=== PATIENT | female | born 1955 | race Caucasian/White ===

== ENCOUNTER 2018-06-18 13:29 | Inpatient (IN) | payer OTHER ==
[2018-06-18] MEDS ORDERED: PANTOPRAZOLE 40 MG/10 ML VIAL IVP STA (14:06)
[2018-06-18] MEDS ORDERED: SODIUM CHLORIDE 0.9% 500 ML IV STA (14:06)
--- NOTE | 2018-06-18 14:15 | ED ---
General Adult HPI - General Chief complaint: GI Bleed Stated complaint: Abd pain Time Seen by Provider: 06/18/18 13:40 Source: patient, RN notes reviewed Mode of arrival: ambulatory Limitations: no limitations - History of Present Illness Initial comments: This is a 62-year-old female presents emergency department after having seen her doctor today. Patient had dark black stool per rectum however stools in the toilet water turned red and was guaiac positive in the office and a hemoglobin was 8.9 patient states she's been weak lately and a little lightheaded on occasion. Patient denies any chest pain or palpitations. Patient denies any recent fever chills or cough. Patient states she has been taking 800 mg of Motrin 2-3 times a day for quite a while for her arthritis. Patient denies any abdominal pain patient denies any vomiting or diarrhea. - Related Data Home Medications Medication Instructions Recorded Confirmed Cholecalciferol [Vitamin D3] 400 unit PO DAILY 06/18/18 06/18/18 Ibuprofen [Motrin] 800 mg PO TID PRN 06/18/18 06/18/18 Krill Oil 500 mg PO DAILY 06/18/18 06/18/18 Thyroid, Pork [[place] Thyroid] 30 mg PO DAILY 06/18/18 06/18/18 Thyroid,Pork [[place] Thyroid] 120 mg PO DAILY 06/18/18 06/18/18 Vitamin B Complex 1 cap PO DAILY 06/18/18 06/18/18 cloNIDine HCL [Catapres] 0.2 mg PO BID 06/18/18 06/18/18 Allergies Allergy/AdvReac Type Severity Reaction Status Date / Time amoxicillin [From Augmentin] AdvReac YEAST Verified 06/18/18 14:26 INFECTION clavulanic acid AdvReac YEAST Verified 06/18/18 14:26 [From Augmentin] INFECTION Sulfa (Sulfonamide AdvReac YEAST Verified 06/18/18 14:26 Antibiotics) INFECTION Review of Systems ROS Statement: Those systems with pertinent positive or pertinent negative responses have been documented in the HPI. ROS Other: All systems not noted in ROS Statement are negative. Past Medical History Past Medical History: Hypertension, Thyroid Disorder Additional Past Medical History / Comment(s): Arthritis History of Any Multi-Drug Resistant Organisms: None Reported Past Surgical History: Cholecystectomy, Hysterectomy, Tonsillectomy Additional Past Surgical History / Comment(s): Thyroid cancer, thyriod removal Past Psychological History: No Psychological Hx Reported Smoking Status: Never smoker Past Alcohol Use History: Occasional Past Drug Use History: None Reported General Exam - General Exam Comments Initial Comments: GENERAL: Patient is well-developed and well-nourished. Patient is nontoxic and well- hydrated and is in no acute distress. ENT: Neck is soft and supple. No significant lymphadenopathy is noted. Oropharynx is clear. Moist mucous membranes. Neck has full range of motion without eliciting any pain. EYES: The sclera were anicteric and conjunctiva were pink and moist. Extraocular movements were intact and pupils were equal round and reactive to light. Eyelids were unremarkable. PULMONARY: Unlabored respirations. Good breath sounds bilaterally. No audible rales rhonchi or wheezing was noted. CARDIOVASCULAR: There is a regular rate and rhythm without any murmurs gallops or rubs. Femoral pulses are equal bilaterally ABDOMEN: Soft and nontender with normal bowel sounds. No palpable organomegaly was noted. There is no palpable pulsatile mass. SKIN: Skin is clear with no lesions or rashes and otherwise unremarkable. NEUROLOGIC: Patient is alert and oriented x3. Cranial nerves II through XII are grossly intact. Motor and sensory are also intact. Normal speech, volume and content. Symmetrical smile. MUSCULOSKELETAL: Normal extremities with adequate strength and full range of motion. No lower extremity swelling or edema. No calf tenderness. LYMPHATICS: No significant lymphadenopathy is noted PSYCHIATRIC: Normal psychiatric evaluation. Normal interpersonal interactions appears functionally intact in deals appropriately with others. No signs of depression. No signs of anxiety. Limitations: no limitations Course Vital Signs 06/18/18 06/18/18 13:42 15:37 Temperature 97.8 F Pulse Rate 116 H 88 Respiratory 20 18 Rate Blood Pressure 130/76 167/71 O2 Sat by Pulse 100 100 Oximetry Medical Decision Making - Medical Decision Making Patient has dark black stools and guaiac positive in the office and had a hemoglobin that is dropped significantly will be admitting the patient I spoke with Dr. Spaulding he agreed to admit admitted the patient I consulted GI and I repeated CBCs every 6 hours - Lab Data Result diagrams: 06/18/18 14:05 06/18/18 14:05 Lab Results 06/18/18 06/18/18 06/18/18 Range/Units 14:05 14:05 14:05 WBC 7.8 (3.8-10.6) k/uL RBC 3.03 L (3.80-5.40) m/uL Hgb 9.6 L (11.4-16.0) gm/dL Hct 30.8 L (34.0-46.0) % MCV 101.7 H (80.0-100.0) fL MCH 31.8 (25.0-35.0) pg MCHC 31.3 (31.0-37.0) g/dL RDW 12.7 (11.5-15.5) % Plt Count 246 (150-450) k/uL Neutrophils % 68 % Lymphocytes % 23 % Monocytes % 5 % Eosinophils % 3 % Basophils % 0 % Neutrophils # 5.3 (1.3-7.7) k/uL Lymphocytes # 1.8 (1.0-4.8) k/uL Monocytes # 0.4 (0-1.0) k/uL Eosinophils # 0.2 (0-0.7) k/uL Basophils # 0.0 (0-0.2) k/uL PT (9.0-12.0) sec INR (<1.2) APTT (22.0-30.0) sec Sodium (137-145) mmol/L Potassium (3.5-5.1) mmol/L Chloride (98-107) mmol/L Carbon Dioxide (22-30) mmol/L Anion Gap mmol/L BUN (7-17) mg/dL Creatinine (0.52-1.04) mg/dL Est GFR (CKD-EPI)AfAm (>60 ml/min/1.73 sqM) Est GFR (CKD-EPI)NonAf (>60 ml/min/1.73 sqM) Glucose (74-99) mg/dL Calcium (8.4-10.2) mg/dL Magnesium (1.6-2.3) mg/dL Total Bilirubin (0.2-1.3) mg/dL AST (14-36) U/L ALT (9-52) U/L Alkaline Phosphatase (38-126) U/L Total Creatine Kinase 120 (30-135) U/L CK-MB (CK-2) 0.7 (0.0-2.4) ng/mL CK-MB (CK-2) Rel Index 0.6 Troponin I 0.016 (0.000-0.034) ng/mL Total Protein (6.3-8.2) g/dL Albumin (3.5-5.0) g/dL Blood Type O Positive Blood Type Recheck CABO Indicated Antibody Screen NEGATIVE Spec Expiration Date 06/21/2018 - 230406/18/18 06/18/18 Range/Units 14:05 14:05 WBC (3.8-10.6) k/uL RBC (3.80-5.40) m/uL Hgb (11.4-16.0) gm/dL Hct (34.0-46.0) % MCV (80.0-100.0) fL MCH (25.0-35.0) pg MCHC (31.0-37.0) g/dL RDW (11.5-15.5) % Plt Count (150-450) k/uL Neutrophils % % Lymphocytes % % Monocytes % % Eosinophils % % Basophils % % Neutrophils # (1.3-7.7) k/uL Lymphocytes # (1.0-4.8) k/uL Monocytes # (0-1.0) k/uL Eosinophils # (0-0.7) k/uL Basophils # (0-0.2) k/uL PT 9.9 (9.0-12.0) sec INR 1.0 (<1.2) APTT 21.4 L (22.0-30.0) sec Sodium 142 (137-145) mmol/L Potassium 4.4 (3.5-5.1) mmol/L Chloride 113 H (98-107) mmol/L Carbon Dioxide 21 L (22-30) mmol/L Anion Gap 8 mmol/L BUN 44 H (7-17) mg/dL Creatinine 0.73 (0.52-1.04) mg/dL Est GFR (CKD-EPI)AfAm >90 (>60 ml/min/1.73 sqM) Est GFR (CKD-EPI)NonAf >90 (>60 ml/min/1.73 sqM) Glucose 102 H (74-99) mg/dL Calcium 10.0 (8.4-10.2) mg/dL Magnesium 2.2 (1.6-2.3) mg/dL Total Bilirubin 0.3 (0.2-1.3) mg/dL AST 22 (14-36) U/L ALT 30 (9-52) U/L Alkaline Phosphatase 55 (38-126) U/L Total Creatine Kinase (30-135) U/L CK-MB (CK-2) (0.0-2.4) ng/mL CK-MB (CK-2) Rel Index Troponin I (0.000-0.034) ng/mL Total Protein 6.2 L (6.3-8.2) g/dL Albumin 3.6 (3.5-5.0) g/dL Blood Type Blood Type Recheck Antibody Screen Spec Expiration Date Disposition Clinical Impression: Anemia, GI bleed Disposition: ADMITTED IP TO THIS HOSP Referrals: Baltazar Benton MD [Primary Care Provider] - 1-2 days Time of Disposition: 15:10
[2018-06-18 14:31] LABS: Basophils % (A) 0 %; Eosinophils # (A) 0.2 k/uL (0-0.7); Eosinophils % (A) 3 %; HCT 30.8 % (34.0-46.0); HGB 9.6 gm/dL (11.4-16.0); Lymphocytes # (A) 1.8 k/uL (1.0-4.8); Lymphocytes % (A) 23 %; MCH 31.8 pg (25.0-35.0); MCHC 31.3 g/dL (31.0-37.0); MCV 101.7 fL (80.0-100.0); Mean Platelet Volume 8.7; Monocytes # (A) 0.4 k/uL (0-1.0); Monocytes % (A) 5 %; Neutrophils # (A) 5.3 k/uL (1.3-7.7); Neutrophils % (A) 68 %; Platelet Count 246 k/uL (150-450); RBC 3.03 m/uL (3.80-5.40); RDW 12.7 % (11.5-15.5); WBC 7.8 k/uL (3.8-10.6)
[2018-06-18 14:34] LABS: ALT 30 U/L (9-52); AST 22 U/L (14-36); Albumin 3.6 g/dL (3.5-5.0); Alkaline Phosphatase 55 U/L (38-126); Anion Gap 8 mmol/L; Blood Urea Nitrogen 44 mg/dL (7-17); Carbon Dioxide 21 mmol/L (22-30); Chloride 113 mmol/L (98-107); Glucose 102 mg/dL (74-99); Magnesium 2.2 mg/dL (1.6-2.3); Potassium 4.4 mmol/L (3.5-5.1); Sodium 142 mmol/L (137-145); Total Bilirubin 0.3 mg/dL (0.2-1.3); Total Protein 6.2 g/dL (6.3-8.2)
[2018-06-18 14:41] LABS: Prothrombin Time 9.9 sec (9.0-12.0)
[2018-06-18 14:54] LABS: Partial Thromboplastin Time 21.4 sec (22.0-30.0)
[2018-06-18 14:59] LABS: Creatine Kinase MB 0.7 ng/mL (0.0-2.4); Troponin I 0.016 ng/mL (0.000-0.034)
[2018-06-18] MEDS ORDERED: SODIUM CHLORIDE 0.9% 1,000 ML IV ONE (15:10)
[2018-06-18] MEDS ORDERED: MAG HYDROX/AL HYDROX/SIMETH 30 ML CUP PO PRN (18:29)
[2018-06-18] MEDS ORDERED: ONDANSETRON 4 MG/2 ML VIAL IVP PRN (20:36)
[2018-06-18] MEDS ORDERED: LACTATED RINGERS 1,000 ML IV SCH (20:45)
[2018-06-18 21:39] LABS: Glucose,Whole Blood 102 mg/dL (75-99)
[2018-06-18 22:10] VITALS: BMI 39.6
[2018-06-18] MEDS: cloNIDine HCL 0.2 MG TAB PO SCH (22:13)
[2018-06-18] MEDS: PANTOPRAZOLE 40 MG/10 ML VIAL IVP SCH (22:13)
[2018-06-18 22:51] LABS: HCT 27.5 % (34.0-46.0); HGB 8.9 gm/dL (11.4-16.0); MCH 33.2 pg (25.0-35.0); MCHC 32.4 g/dL (31.0-37.0); MCV 102.4 fL (80.0-100.0); Macrocytosis Slight; Mean Platelet Volume 6.9; Platelet Count 222 k/uL (150-450); RBC 2.69 m/uL (3.80-5.40); RDW 12.9 % (11.5-15.5); WBC 8.4 k/uL (3.8-10.6)
--- NOTE | 2018-06-18 22:59 | HP ---
HISTORY AND PHYSICAL DATE OF SERVICE AND DATE OF ADMISSION: 06/18/2018 PRESENT COMPLAINT: Black stool. HISTORY OF PRESENTING COMPLAINT: This is a very pleasant 62-year-old patient of Dr. Baltazar Benton. Chronic stable medical conditions include hypertension, hypothyroid, arthritis of the joints. The patient has been taking Motrin for quite some time, normally takes over 800 mg once or twice a day. She takes for pain in the right knee. The patient off and on gets abdominal discomfort, but last night the patient's pain became more burning in nature and the patient had a black stool yesterday evening and this morning. Feeling weak, tired, run down. Pain is localized to the middle of the abdomen. No penetration. Some nausea is present. No vomiting. No fever or chills. Admitted for the same. NSAIDs were held, was given 1 dose of IV PPI in the ER. The patient has not had an EGD before. REVIEW OF SYSTEMS: CONSTITUTIONAL: Weak and tired. HEENT: None. RESPIRATORY: None. CARDIOVASCULAR: None. GASTROINTESTINAL: As above. GENITOURINARY: None. MUSCULOSKELETAL: Arthritic pain in joints, especially the knees. DERMATOLOGICAL: None. HEMATOLOGIC: None. LYMPHATIC: None. PSYCHIATRY: None. NEUROLOGICAL: None. PAST MEDICAL HISTORY: Hypertension, hypothyroid, osteoarthritis. PAST SURGICAL HISTORY: Cholecystectomy, hysterectomy, tonsillectomy, thyroid cancer with thyroidectomy. 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 . No smoking. Alcohol occasionally. FAMILY HISTORY: Reviewed, noncontributory to presentation. HOME MEDICATIONS: 1. Catapres 0.2 mg p.o. b.i.d. 2. Vitamin B complex 1 capsule p.o. daily. 3. [place] thyroid 150 mg p.o. daily. 4. Krill oil 500 mg p.o. daily. 5. Motrin 800 mg p.o. t.i.d. p.r.n. 6. Vitamin D3 400 units p.o. daily. ALLERGIES: To AUGMENTIN, SULFA. EXAMINATION: VITAL SIGNS: On presentation, temperature 97.8, pulse 116, respirations 20, blood pressure 130/76, pulse ox 100% on room air. GENERAL APPEARANCE: Well-built, BMI 39.3. Lying in bed, tired-appearing. EYES: Pupils equal. Conjunctivae normal. HEENT: External appearance of nose and ears normal. Oral cavity normal. NECK: JVD not raised. Mass not palpable. RESPIRATORY: Effort normal. Lungs are clear. CARDIOVASCULAR: First and second sounds normal. No edema. ABDOMEN: Epigastric tenderness. No guarding or rigidity. Liver and spleen not palpable. LYMPHATIC: No lymph nodes palpable in neck or axillae. PSYCHIATRY: Alert and oriented x3. Mood and affect normal. NEUROLOGICAL: Pupils equal. Cranial nerve grossly intact. Power and sensation grossly intact. MUSCULOSKELETAL: Evidence of early osteoarthritis, especially in the hands. INVESTIGATIONS: White count 7.8, hemoglobin 9.6. Potassium 4.4, BUN 44, creatinine 0.73. ASSESSMENT: 1. Acute upper gastrointestinal bleed, likely gastric in nature from the patient has been taking nonsteroidal anti-inflammatory drugs for quite a while, presented with acute gastrointestinal bleed. 2. Next acute blood loss anemia from acute gastrointestinal bleed. 3. Obesity, BMI 39.3. 4. Essential hypertension. 5. Hypothyroidism. 6. Primary osteoarthritis multiple joints. PLAN: The patient's NSAIDs have been held. The patient is started on IV PPIs. GI was consulted with a view to EGD. The patient will be made n.p.o. except for medications and ice chips. Care was discussed with the patient. Questions were answered. MMODL / IJN: [id number] /
[2018-06-19] MEDS ORDERED: NALOXONE 0.4 MG/ML 1 ML VIAL IV PRN (01:32)
[2018-06-19 05:08] LABS: Anion Gap 4 mmol/L; Blood Urea Nitrogen 25 mg/dL (7-17); Calcium 8.9 mg/dL (8.4-10.2); Carbon Dioxide 21 mmol/L (22-30); Chloride 117 mmol/L (98-107); Glucose 99 mg/dL (74-99); Magnesium 2.2 mg/dL (1.6-2.3); Phosphorus 3.6 mg/dL (2.5-4.5); Sodium 142 mmol/L (137-145)
[2018-06-19 05:23] LABS: Potassium 4.8 mmol/L (3.5-5.1)
[2018-06-19 06:14] LABS: Basophils % (A) 0 %; Eosinophils # (A) 0.1 k/uL (0-0.7); Eosinophils % (A) 2 %; HCT 24.5 % (34.0-46.0); HGB 7.8 gm/dL (11.4-16.0); Lymphocytes # (A) 2.1 k/uL (1.0-4.8); Lymphocytes % (A) 34 %; MCHC 31.9 g/dL (31.0-37.0); MCV 100.4 fL (80.0-100.0); Mean Platelet Volume 7.7; Monocytes # (A) 0.4 k/uL (0-1.0); Monocytes % (A) 6 %; Neutrophils # (A) 3.3 k/uL (1.3-7.7); Neutrophils % (A) 55 %; Platelet Count 211 k/uL (150-450); RBC 2.44 m/uL (3.80-5.40); RDW 12.7 % (11.5-15.5)
[2018-06-19] MEDS: SODIUM CHLORIDE 0.9% 1,000 ML IV SCH ×2 (08:35→12:30)
[2018-06-19] MEDS: THYROID, PORK 30 MG TAB PO SCH ×2 (08:57)
[2018-06-19] MEDS: PANTOPRAZOLE 40 MG/10 ML VIAL IVP SCH ×2 (08:57→21:24)
[2018-06-19] MEDS: cloNIDine HCL 0.2 MG TAB PO SCH ×2 (09:30→21:25)
--- NOTE | 2018-06-19 10:28 | P.CNPUL ---
History of Present Illness Consult date: 06/19/18 Chief complaint: GI bleeding History of present illness: 62-year-old female patient, came into the hospital yesterday after having melanotic stools at home. The patient started having melanotic stools approximately 5 AM yesterday morning and she had another bout 8 AM and then noontime. Following that she went to see her primary care physician and she had a positive Hemoccult and she came into the emergency department. Initial hemoglobin was at 9.6. The patient was started on IV Protonix. She was given IV fluids in the order of 100 mL an hour. She hasn't bled since her arrival to the intensive care unit. She is calm and comfortable she is currently nothing by mouth. No abdominal pain. No nausea or vomiting. No weight loss. No bright red blood per rectum. She is never had Any EGDs. Never Had It Done Any Colonoscopies. No Other Complaints. No Alcoholism. No Liver Disease. Coags Are within Normal Limits. No previous bouts of GI bleed. Most recent hemoglobin this morning is at 7.8. The patient has not required any blood transfusion. The patient has been taking Motrin at home for osteoarthritis. She was prescribed 800 mg 3 times a day and she has been taken twice a day. She did have some vague GI discomfort/symptoms of dyspepsia along with intake of Motrin. No weight loss. No other Social Symptoms. Review of Systems Constitutional: Denies chills, Denies fever Eyes: bilateral blurred vision, bilateral bulging eye, bilateral decreased vision Ears: deny: decreased hearing, ear discharge, earache, tinnitus Ears, nose, mouth and throat: Denies headache, Denies sore throat Breasts: Reports as per HPI Cardiovascular: Denies chest pain, Denies shortness of breath Respiratory: Denies cough Gastrointestinal: Reports melena Genitourinary: Denies dysuria, Denies hematuria Menstruation: Reports as per HPI Musculoskeletal: bilateral: ankle pain, ankle stiffness, ankle swelling Integumentary: Denies pruritus, Denies rash Neurological: Reports as per HPI Psychiatric: Reports as per HPI Endocrine: Reports as per HPI Hematologic/Lymphatic: Reports as per HPI Allergic/Immunologic: Reports as per HPI Past Medical History Past Medical History: Hypertension, Thyroid Disorder Additional Past Medical History / Comment(s): Arthritis History of Any Multi-Drug Resistant Organisms: None Reported Past Surgical History: Cholecystectomy, Hysterectomy, Tonsillectomy Additional Past Surgical History / Comment(s): Thyroid cancer, thyriod removal Past Psychological History: No Psychological Hx Reported Smoking Status: Never smoker Past Alcohol Use History: Occasional Past Drug Use History: None Reported Medications and Allergies Home Medications Medication Instructions Recorded Confirmed Type Cholecalciferol [Vitamin D3] 400 unit PO DAILY 06/18/18 06/18/18 History Ibuprofen [Motrin] 800 mg PO TID PRN 06/18/18 06/18/18 History Krill Oil 500 mg PO DAILY 06/18/18 06/18/18 History Thyroid, Pork [[place] Thyroid] 30 mg PO DAILY 06/18/18 06/18/18 History Thyroid,Pork [[place] Thyroid] 120 mg PO DAILY 06/18/18 06/18/18 History Vitamin B Complex 1 cap PO DAILY 06/18/18 06/18/18 History cloNIDine HCL [Catapres] 0.2 mg PO BID 06/18/18 06/18/18 History Allergies Allergy/AdvReac Type Severity Reaction Status Date / Time amoxicillin [From Augmentin] AdvReac YEAST Verified 06/18/18 14:26 INFECTION clavulanic acid AdvReac YEAST Verified 06/18/18 14:26 [From Augmentin] INFECTION Sulfa (Sulfonamide AdvReac YEAST Verified 06/18/18 14:26 Antibiotics) INFECTION Physical Exam Vitals: Vital Signs Temp Pulse Pulse Resp BP BP Pulse Ox 06/19/18 10:00 79 19 119/62 99 06/19/18 09:00 77 21 131/65 100 06/19/18 08:00 97.9 F 77 17 114/63 98 06/19/18 07:00 74 16 92/68 95 06/19/18 06:00 80 6 L 102/52 97 06/19/18 05:00 83 18 114/50 98 06/19/18 04:00 98.7 F 76 69 18 99/48 98 06/19/18 03:00 71 16 107/54 98 06/19/18 02:00 66 15 96/57 97 06/19/18 01:00 73 29 H 98/57 98 06/19/18 00:00 75 71 16 94/51 06/18/18 23:00 83 19 154/74 06/18/18 22:00 85 21 160/71 97 06/18/18 21:39 93 17 06/18/18 20:58 97.7 F 87 18 185/87 100 06/18/18 20:29 98.6 F 90 16 175/80 100 06/18/18 19:02 98.8 F 85 18 153/75 98 06/18/18 17:31 88 18 134/98 98 06/18/18 16:17 98.1 F 86 22 160/71 99 06/18/18 15:37 88 18 167/71 100 06/18/18 13:42 97.8 F 116 H 20 130/76 100 Intake and Output 06/18/18 06/19/18 06/19/18 22:59 06:59 14:59 Intake Total 800 430 Output Total 550 Balance 800 -120 Intake: IV 800 400 Sodium Chloride 0.9% 1, 800 400 000 ml @ 100 mls/hr IV . Q10H SLIM Rx#:[id number] Oral 30 Output: Urine 550 Other: # Voids 1 # Bowel Movements 1 Weight 92 kg 92.4 kg The patient appeared well nourished and normally developed. Vital signs as documented. Head exam is unremarkable. No scleral icterus or corneal arcus noted. Neck is without jugular venous distension, thyromegaly, or carotid bruits. Carotid upstrokes are brisk bilaterally. Lungs are clear to auscultation and percussion. Cardiac exam reveals the PMI to be normally sized and situated. Rhythm is regular. First and second heart sounds normal. No murmurs, rubs or gallops. Abdominal exam reveals normal bowel sounds, no masses , no organomegaly and no aortic enlargement. Extremities are nonedematous and both femoral and pedal pulses are normal.Examination of the skin revealed no evidence of significant rashes, suspicious appearing nevi or other concerning lesions. Neurologically the patient is awake and alert and is no focal neurological deficit. Results - Laboratory Findings CBC and BMP: 06/19/18 05:36 06/19/18 04:21 PT/INR, D-dimer PT 9.9 sec (9.0-12.0) 06/18/18 14:05 INR 1.0 (<1.2) 06/18/18 14:05 Abnormal lab findings: Abnormal Labs 06/18/18 06/18/18 06/18/18 14:05 14:05 14:05 RBC 3.03 L Hgb 9.6 L Hct 30.8 L MCV 101.7 H APTT 21.4 L Chloride 113 H Carbon Dioxide 21 L BUN 44 H Glucose 102 H POC Glucose (mg/dL) Total Protein 6.2 L 06/18/18 06/18/18 06/19/18 21:38 22:34 04:21 RBC 2.69 L Hgb 8.9 L Hct 27.5 L MCV 102.4 H APTT Chloride 117 H Carbon Dioxide 21 L BUN 25 H Glucose POC Glucose (mg/dL) 102 H Total Protein 06/19/18 05:36 RBC 2.44 L Hgb 7.8 L Hct 24.5 L MCV 100.4 H APTT Chloride Carbon Dioxide BUN Glucose POC Glucose (mg/dL) Total Protein - Diagnostic Findings Chest x-ray: image reviewed Assessment and Plan Plan: Assessment 1 acute upper GI bleed. Patient presented with melanotic stool. She is hemodynamically stable and the most and hemoglobin is at 7.8. She is on IV Protonix. No previous history of any GI bleed. Correlation profile is within normal limits. This is most likely in an estate-induced upper GI bleeding probably gastritis or peptic ulcer disease. 2 blood loss anemia with hemoglobin at 7.8 3 hypothyroidism 4 hypertension 5 osteoarthritis taken Motrin 800 mg twice a day Plan Stop nonsteroidal anti-inflammatory medications. Continue IV Protonix. Monitor hemoglobin. Consult GI. EGD in a.m.
[2018-06-19] MEDS ORDERED: ACETAMINOPHEN TAB 325 MG TAB PO PRN (10:31)
[2018-06-19 16:58] LABS: HCT 28.5 % (34.0-46.0); MCHC 32.5 g/dL (31.0-37.0); MCV 101.3 fL (80.0-100.0); Mean Platelet Volume 7.5; Platelet Count 242 k/uL (150-450); RBC 2.81 m/uL (3.80-5.40); RDW 12.8 % (11.5-15.5); WBC 5.9 k/uL (3.8-10.6)
[2018-06-19 17:00] LABS: HGB 9.3 gm/dL (11.4-16.0)
[2018-06-20] MEDS: SODIUM CHLORIDE 0.9% 1,000 ML IV SCH ×3 (00:25→15:35)
[2018-06-20 05:55] LABS: Basophils % (A) 0 %; Eosinophils # (A) 0.2 k/uL (0-0.7); Eosinophils % (A) 4 %; Hypochromasia Slight; Lymphocytes # (A) 1.5 k/uL (1.0-4.8); Lymphocytes % (A) 28 %; MCH 32.8 pg (25.0-35.0); MCV 102.5 fL (80.0-100.0); Macrocytosis Slight; Mean Platelet Volume 8.3; Monocytes # (A) 0.4 k/uL (0-1.0); Monocytes % (A) 7 %; Neutrophils # (A) 3.2 k/uL (1.3-7.7); Neutrophils % (A) 60 %; Platelet Count 173 k/uL (150-450); RBC 2.44 m/uL (3.80-5.40); RDW 12.7 % (11.5-15.5); WBC 5.4 k/uL (3.8-10.6)
[2018-06-20 06:50] LABS: Anion Gap 5 mmol/L; Calcium 8.4 mg/dL (8.4-10.2); Carbon Dioxide 21 mmol/L (22-30); Chloride 116 mmol/L (98-107); Glucose 93 mg/dL (74-99); Magnesium 2.1 mg/dL (1.6-2.3); Phosphorus 3.1 mg/dL (2.5-4.5); Sodium 142 mmol/L (137-145)
[2018-06-20 07:09] LABS: Blood Urea Nitrogen 10 mg/dL (7-17)
[2018-06-20] MEDS: PANTOPRAZOLE 40 MG/10 ML VIAL IVP SCH (08:23)
[2018-06-20] MEDS: THYROID, PORK 30 MG TAB PO SCH ×2 (08:24)
--- NOTE | 2018-06-20 12:39 | P.PN ---
Subjective Progress Note Date: 06/20/18 62-year-old female patient, came into the hospital yesterday after having melanotic stools at home. The patient started having melanotic stools approximately 5 AM yesterday morning and she had another bout 8 AM and then noontime. Following that she went to see her primary care physician and she had a positive Hemoccult and she came into the emergency department. Initial hemoglobin was at 9.6. The patient was started on IV Protonix. She was given IV fluids in the order of 100 mL an hour. She hasn't bled since her arrival to the intensive care unit. She is calm and comfortable she is currently nothing by mouth. No abdominal pain. No nausea or vomiting. No weight loss. No bright red blood per rectum. She is never had Any EGDs. Never Had It Done Any Colonoscopies. No Other Complaints. No Alcoholism. No Liver Disease. Coags Are within Normal Limits. No previous bouts of GI bleed. Most recent hemoglobin this morning is at 7.8. The patient has not required any blood transfusion. The patient has been taking Motrin at home for osteoarthritis. She was prescribed 800 mg 3 times a day and she has been taken twice a day. She did have some vague GI discomfort/symptoms of dyspepsia along with intake of Motrin. No weight loss. No other Social Symptoms. On 06/20/2018 the patient is being seen in follow-up in the intensive care unit. She hasn't had any further episodes of bleeding. She is stable. She is hemodynamically stable. In fact her blood pressure is slightly on the higher side. No nausea. No vomiting. No abdominal pain. She IV Protonix. She is nothing by mouth. She'll be having a EGD today. She ruled out of the intensive care unit following her EGD. Dropped down to 8.0. The patient did not require any blood transfusion. Coags are within normal limits. Rest of the electrolytes are all within normal limits. Objective - Vital Signs Vital signs: Vital Signs Temp 98.4 F 06/20/18 08:00 Pulse 79 06/20/18 11:00 Resp 17 06/20/18 11:00 BP 139/77 06/20/18 11:00 Pulse Ox 98 06/20/18 11:00 Intake & Output 06/19/18 06/20/18 06/20/18 18:59 06:59 18:59 Intake Total 1550 1775 500 Output Total 6435 711 9713 Balance -350 1225 -1350 Weight 93.3 kg Intake: IV 1200 1200 500 Sodium Chloride 0.9% 1, 1200 1200 500 000 ml @ 100 mls/hr IV . Q10H SLIM Rx#:[id number] Oral 350 575 Output: Urine 9508 719 6535 Other: Voiding Method Toilet Toilet # Voids 1 1 # Bowel Movements 1 - Exam The patient appeared well nourished and normally developed. Vital signs as documented. Head exam is unremarkable. No scleral icterus or corneal arcus noted. Neck is without jugular venous distension, thyromegaly, or carotid bruits. Carotid upstrokes are brisk bilaterally. Lungs are clear to auscultation and percussion. Cardiac exam reveals the PMI to be normally sized and situated. Rhythm is regular. First and second heart sounds normal. No murmurs, rubs or gallops. Abdominal exam reveals normal bowel sounds, no masses , no organomegaly and no aortic enlargement. Extremities are nonedematous and both femoral and pedal pulses are normal.Examination of the skin revealed no evidence of significant rashes, suspicious appearing nevi or other concerning lesions. Neurologically the patient is awake and alert and is no focal neurological deficit. - Labs CBC & Chem 7: 06/20/18 05:14 06/20/18 05:14 Labs: Abnormal Lab Results - Last 24 Hours (Table) 06/19/18 06/20/18 06/20/18 Range/Units 16:11 05:14 05:14 RBC 2.81 L 2.44 L (3.80-5.40) m/uL Hgb 9.3 L D 8.0 L (11.4-16.0) gm/dL Hct 28.5 L 25.0 L (34.0-46.0) % MCV 101.3 H 102.5 H (80.0-100.0) fL Chloride 116 H (98-107) mmol/L Carbon Dioxide 21 L (22-30) mmol/L Assessment and Plan Plan: Assessment 1 acute upper GI bleed. Patient presented with melanotic stool. She is hemodynamically stable and the most and hemoglobin is at8.0 She is on IV Protonix. No previous history of any GI bleed. Correlation profile is within normal limits. This is most likely NSAID-induced upper GI bleeding probably gastritis or peptic ulcer disease. The patient has not had any further episodes of bleeding over the past 24 hours and EGD will be done today. 2 blood loss anemia with hemoglobin at 8 3 hypothyroidism 4 hypertension 5 osteoarthritis taken Motrin 800 mg twice a day Plan Stop nonsteroidal anti-inflammatory medications. Continue IV Protonix. EGD today. Hemodynamically stable. She will moved out of the intensive care unit once the EGD is done and the workup is complete.
--- NOTE | 2018-06-20 13:19 | P.CONS ---
History of Present Illness - Reason for Consult Consult date: 06/19/18 GI bleeding. - History of Present Illness The patient is a 62-year-old female who was admitted through the emergency department with history of melanotic stools that started the morning on her admission. The patient was feeling weak and tired lately. She has been on Motrin 800 mg twice a day for arthritis but does not drink alcohol or any history of liver disease or any history of peptic ulcer disease. The patient was admitted to the hospital and was started on IV Protonix. Her hemoglobin was initially 9.6 and gradually dropped to 7.8 today. We are asked to see her for consideration for upper endoscopy. The patient has no abdominal complaints or change in bowel habits. No vomiting , hematemesis or hematochezia. She had no prior colonoscopy. Review of Systems Constitutional: Denies fever, chills or unintentional weight loss Neurologic: No headaches, double vision or other sensory or motor changes Cardiopulmonary: No chest pain, shortness of breath or palpitations Gastrointestinal: See present illness above Genitourinary: Denies hematuria, dysuria or frequency Endocrine: No history of diabetes, has thyroid disease Musculoskeletal: History of arthritis Skin: No rashes Hematologic: No anemia or bleeding tendency Psychiatric: No anxiety or depression Past Medical History Past Medical History: Hypertension, Thyroid Disorder Additional Past Medical History / Comment(s): Arthritis History of Any Multi-Drug Resistant Organisms: None Reported Past Surgical History: Cholecystectomy, Hysterectomy, Tonsillectomy Additional Past Surgical History / Comment(s): Thyroid cancer, thyriod removal Past Psychological History: No Psychological Hx Reported Smoking Status: Never smoker Past Alcohol Use History: Occasional Past Drug Use History: None Reported Medications and Allergies Home Medications Medication Instructions Recorded Confirmed Type Cholecalciferol [Vitamin D3] 400 unit PO DAILY 06/18/18 06/18/18 History Ibuprofen [Motrin] 800 mg PO TID PRN 06/18/18 06/18/18 History Krill Oil 500 mg PO DAILY 06/18/18 06/18/18 History Thyroid, Pork [[place] Thyroid] 30 mg PO DAILY 06/18/18 06/18/18 History Thyroid,Pork [[place] Thyroid] 120 mg PO DAILY 06/18/18 06/18/18 History Vitamin B Complex 1 cap PO DAILY 06/18/18 06/18/18 History cloNIDine HCL [Catapres] 0.2 mg PO BID 06/18/18 06/18/18 History Allergies Allergy/AdvReac Type Severity Reaction Status Date / Time amoxicillin [From Augmentin] AdvReac YEAST Verified 06/18/18 14:26 INFECTION clavulanic acid AdvReac YEAST Verified 06/18/18 14:26 [From Augmentin] INFECTION Sulfa (Sulfonamide AdvReac YEAST Verified 06/18/18 14:26 Antibiotics) INFECTION Physical Exam Vitals: Vital Signs Temp Pulse Pulse Resp BP BP Pulse Ox 06/19/18 13:00 97.7 F 90 20 142/77 100 06/19/18 12:00 78 17 116/60 97 06/19/18 11:00 76 17 119/67 98 06/19/18 10:00 79 19 119/62 99 06/19/18 09:00 77 21 131/65 100 06/19/18 08:00 97.9 F 77 17 114/63 98 06/19/18 07:00 74 16 92/68 95 06/19/18 06:00 80 6 L 102/52 97 06/19/18 05:00 83 18 114/50 98 06/19/18 04:00 98.7 F 76 69 18 99/48 98 06/19/18 03:00 71 16 107/54 98 06/19/18 02:00 66 15 96/57 97 06/19/18 01:00 73 29 H 98/57 98 06/19/18 00:00 75 71 16 94/51 06/18/18 23:00 83 19 154/74 06/18/18 22:00 85 21 160/71 97 06/18/18 21:39 93 17 06/18/18 20:58 97.7 F 87 18 185/87 100 06/18/18 20:29 98.6 F 90 16 175/80 100 06/18/18 19:02 98.8 F 85 18 153/75 98 06/18/18 17:31 88 18 134/98 98 06/18/18 16:17 98.1 F 86 22 160/71 99 06/18/18 15:37 88 18 167/71 100 Intake and Output 06/18/18 06/19/18 06/19/18 22:59 06:59 14:59 Intake Total 800 1050 Output Total 1300 Balance 800 -250 Intake: IV 800 700 Sodium Chloride 0.9% 1, 800 700 000 ml @ 100 mls/hr IV . Q[facility]H [facility] Rx#:[id number] Oral 350 Output: Urine 1300 Other: # Voids 1 # Bowel Movements 1 Weight 92 kg 92.4 kg General: Appeared stated age, very pleasant in no acute distress Head and neck: Normocephalic and atraumatic, conjunctivae pink and sclerae not icteric. Mucous membranes moist and pink. No masses in the neck or tracheal shift Lungs: Clear to auscultation with no dullness to percussion Heart: Regular, no abnormal sounds, murmurs, gallops or friction rubs Abdomen: Soft, no masses or organomegalies, no tenderness. Bowel sounds present Extremities: No clubbing, cyanosis or edema Neurologic: Alert and oriented 3, cranial nerves grossly intact, no gross sensory or motor abnormalities Results CBC & Chem 7: 06/20/18 05:14 06/20/18 05:14 Labs: Abnormal Lab Results - Last 24 Hours (Table) 06/18/18 06/18/18 06/18/18 Range/Units 14:05 14:05 14:05 RBC 3.03 L (3.80-5.40) m/uL Hgb 9.6 L (11.4-16.0) gm/dL Hct 30.8 L (34.0-46.0) % MCV 101.7 H (80.0-100.0) fL APTT 21.4 L (22.0-30.0) sec Chloride 113 H (98-107) mmol/L Carbon Dioxide 21 L (22-30) mmol/L BUN 44 H (7-17) mg/dL Glucose 102 H (74-99) mg/dL POC Glucose (mg/dL) (75-99) mg/dL Total Protein 6.2 L (6.3-8.2) g/dL 06/18/18 06/18/18 06/19/18 Range/Units 21:38 22:34 04:21 RBC 2.69 L (3.80-5.40) m/uL Hgb 8.9 L (11.4-16.0) gm/dL Hct 27.5 L (34.0-46.0) % MCV 102.4 H (80.0-100.0) fL APTT (22.0-30.0) sec Chloride 117 H (98-107) mmol/L Carbon Dioxide 21 L (22-30) mmol/L BUN 25 H (7-17) mg/dL Glucose (74-99) mg/dL POC Glucose (mg/dL) 102 H (75-99) mg/dL Total Protein (6.3-8.2) g/dL 06/19/18 Range/Units 05:36 RBC 2.44 L (3.80-5.40) m/uL Hgb 7.8 L (11.4-16.0) gm/dL Hct 24.5 L (34.0-46.0) % MCV 100.4 H (80.0-100.0) fL APTT (22.0-30.0) sec Chloride (98-107) mmol/L Carbon Dioxide (22-30) mmol/L BUN (7-17) mg/dL Glucose (74-99) mg/dL POC Glucose (mg/dL) (75-99) mg/dL Total Protein (6.3-8.2) g/dL Assessment and Plan Assessment: GI bleeding and anemia, likely secondary to NSAID related gastritis or peptic ulcer disease. The patient appears stable and is not manifesting signs of accelerated bleeding and hemodynamic instability. Plan: I agree with current management, will continue clear liquid diet and plan an upper endoscopy tomorrow. Further plans based on those findings.
[2018-06-20] MEDS ORDERED: PROPOFOL 10 MG/ML 20 ML VIAL IV ONE (13:43)
[2018-06-20 13:44] LABS: Hemoglobin A1C 5.2 % (4.0-6.0)
[2018-06-20] MEDS ORDERED: SODIUM CHLORIDE 0.9% 900 ML IV ONE (13:49)
--- NOTE | 2018-06-20 14:15 | P.PCN ---
Date of Procedure: 06/20/18 Procedure(s) Performed: Procedure: Esophagogastroduodenoscopy and biopsy. Preoperative diagnosis: GI bleeding and anemia. Postoperative diagnosis: 1. Gastritis and duodenitis with deformity and ulceration in the immediate post bulbar area but no active bleeding or significant obstruction to the gastric outlet. 2. Biopsies obtained from the antrum. 3. Small sliding hiatal hernia with no obvious esophagitis or complicated reflux disease Preparation sedation: Was provided by anesthesia. Brief clinical history: The patient is a 62-year-old female who was admitted through the emergency department with history of melanotic stools that started the morning on her admission. The patient was feeling weak and tired for the prior several days. She has been on Motrin 800 mg twice a day for arthritis but does not drink alcohol or have any history of liver disease or any history of peptic ulcer disease. The patient was admitted to the hospital and was started on IV Protonix. Her hemoglobin was initially 9.6 and gradually dropped to 7.8 today. This morning it is 8.0. The patient has no abdominal complaints or change in bowel habits. No vomiting, hematemesis or hematochezia. She had no prior colonoscopy. Other details are summarized in the history and physical and dictated consultation and progress notes. This evaluation is to assess for a source of bleeding. Procedure: With the patient on her left lateral decubitus position and after informed consent and adequate sedation, I passed the Olympus-GIF 160 video upper endoscope through the cricopharyngeus down the esophagus. GE junction was around 35 cm from the incisors and there was a small sliding hiatal hernia but no obvious esophagitis or complicated reflux disease. The endoscope was then passed into the stomach which was insufflated with air and inspected in detail including the retroflex view in the cardia. There was some mottling and erythema in the antrum but no ulcers or erosions. Pyloric channel did not show any ulcers. Duodenal bulb showed erythema and minimal friability. There was some deformity in the bulb post last post bulbar area which initially did not allow the advancement of the endoscope. With gentle maneuvering, the endoscope was then directed without difficulty into the post bulbar area and descending duodenum. There was friability, edema and ulceration in the immediate post bulbar area but no active bleeding. I obtained biopsies from the antrum, to rule out H. pylori infection, before the endoscope was withdrawn. The patient tolerated the procedure well. Plan: The patient was reassured. Will continue clear liquid diet. Will advance to full fluids if she tolerates further plans can be made based on her course and blood counts. I suggest that she stays on PPI for some time, especially, if she is going to have to be on NSAIDs for arthritis in the future.
--- NOTE | 2018-06-20 15:02 | PN ---
PROGRESS NOTE DATE OF SERVICE: 06/19/18 PRESENTING COMPLAINT: Bloody stools. INTERVAL HISTORY: This patient is seen by me yesterday on 06/19/18 in the ICU. Transferred for bloody stool. No further episodes. Abdominal discomfort still present. H and H being followed. Feeling tired and run down. REVIEW OF SYSTEMS: Done for constitutional, cardiovascular, GI, pulmonary; relevant findings above. CURRENT MEDICATIONS: Reviewed that include IV PPI. PHYSICAL EXAMINATION: Temperature 97.7, pulse 98, respiratory 20, blood pressure 140/77, pulse 100 percent. GENERAL APPEARANCE Lying in bed, awake. EYES: Pupils equal. Conjunctivae normal. HEENT: External appearance of nose and ears normal. Oral cavity normal. NECK: JVD not raised. Mass not palpable. RESPIRATORY: Effort, lungs are clear. CARDIOVASCULAR: 1st and 2nd sounds normal. No edema. ABDOMEN: Epigastric tenderness. No guarding or rigidity. Liver and spleen not palpable. PSYCHIATRY: Alert and oriented x3. Mood and affect normal. INVESTIGATIONS: Hemoglobin is 10.8. ASSESSMENT: 1. Acute upper GI bleed likely gastric in nature from patient being on nonsteroidals, presented with acute GI bleed. 2. Acute gastrointestinal bleed. 3. Acute blood loss anemia from acute GI bleed. 4. Obesity; BMI 39.3. 5. Essential hypertension. 6. Hypothyroidism. 7. Primary osteoarthritis in multiple joints. PLAN: Continue current medication and treatment plan. Awaiting EGD per GI. Care was discussed with the patient. Follow. MMODL / IJN: [id number] /
[2018-06-20] MEDS: PANTOPRAZOLE 40 MG TABLET PO SCH (20:06)
[2018-06-20] MEDS: cloNIDine HCL 0.1 MG TAB PO SCH (20:06)
--- NOTE | 2018-06-21 05:53 | PN ---
PROGRESS NOTE DATE OF SERVICE: 06/20/18. PRESENTING COMPLAINT: Bloody stools. INTERVAL HISTORY: The patient presented with acute GI bleed taking NSAIDs. Underwent EGD today that showed gastritis, duodenitis and duodenal ulcer. Overall feeling better. Started on clear liquids. Was in the ICU this morning. REVIEW OF SYSTEMS: Done for constitutional, cardiovascular, GI, pulmonary; relevant findings as above. CURRENT MEDICATIONS: Showed PPI. EXAMINATION: Temperature 98.1, pulse 90, respiratory 20, blood pressure 139/77, pulse ox 99 percent on room air. GENERAL APPEARANCE: Lying in bed, awake. EYES: Pupils equal. Conjunctivae pale. HEENT: External appearance of nose and ears normal. Oral cavity normal. NECK: JVD not raised. Mass not palpable. RESPIRATORY: Effort, lungs are clear CARDIOVASCULAR: 1st and 2nd sounds normal. No edema. ABDOMEN: Soft, minimal epigastric tenderness. No guarding or rigidity. Liver and spleen not palpable. PSYCHIATRY: Alert and oriented x3. Mood and affect normal. INVESTIGATION: EGD report as above. Hemoglobin is 8, potassium 4.0, bicarb 21. ASSESSMENT: 1. Acute upper GI bleed with patient having gastritis, duodenitis and duodenal bulb ulcer from taking NSAIDs. 2. Acute blood loss anemia from above. 3. Obesity, BMI 39.3. 4. Essential hypertension. 5. Hypothyroidism. 6. Primary osteoarthritis of multiple joints bilateral. PLAN: Continue current medication and treatment. Diet is being advanced. Patient on PPI. Repeat hemoglobin in the morning. MMODL / IJN: [id number] /
[2018-06-21 06:35] VITALS: BP 138/83; PULSE 69; RESP 18; TEMP 98.5
[2018-06-21] MEDS: cloNIDine HCL 0.2 MG TAB PO SCH (07:32)
[2018-06-21] MEDS: cloNIDine HCL 0.1 MG TAB PO SCH (08:49)
[2018-06-21] MEDS: PANTOPRAZOLE 40 MG TABLET PO SCH (08:49)
[2018-06-21] MEDS: THYROID, PORK 30 MG TAB PO SCH ×2 (08:49)
[2018-06-21 09:39] LABS: Basophils % (A) 0 %; Eosinophils # (A) 0.2 k/uL (0-0.7); Eosinophils % (A) 3 %; HCT 27.8 % (34.0-46.0); HGB 8.9 gm/dL (11.4-16.0); Lymphocytes # (A) 1.3 k/uL (1.0-4.8); Lymphocytes % (A) 23 %; MCH 32.7 pg (25.0-35.0); MCHC 32.1 g/dL (31.0-37.0); MCV 101.9 fL (80.0-100.0); Macrocytosis Slight; Monocytes # (A) 0.2 k/uL (0-1.0); Monocytes % (A) 4 %; Neutrophils # (A) 3.8 k/uL (1.3-7.7); Neutrophils % (A) 68 %; Platelet Count 268 k/uL (150-450); RBC 2.73 m/uL (3.80-5.40); RDW 13.2 % (11.5-15.5); WBC 5.6 k/uL (3.8-10.6)
[2018-06-21 09:53] LABS: Anion Gap 8 mmol/L; Blood Urea Nitrogen 7 mg/dL (7-17); Calcium 9.2 mg/dL (8.4-10.2); Carbon Dioxide 23 mmol/L (22-30); Chloride 110 mmol/L (98-107); Glucose 126 mg/dL (74-99); Phosphorus 2.9 mg/dL (2.5-4.5); Potassium 3.8 mmol/L (3.5-5.1); Sodium 141 mmol/L (137-145)
--- NOTE | 2018-06-21 13:09 | P.PN ---
Subjective Progress Note Date: 06/21/18 Principal diagnosis: GI bleed 62-year-old female patient, came into the hospital yesterday after having melanotic stools at home. The patient started having melanotic stools approximately 5 AM yesterday morning and she had another bout 8 AM and then noontime. Following that she went to see her primary care physician and she had a positive Hemoccult and she came into the emergency department. Initial hemoglobin was at 9.6. The patient was started on IV Protonix. She was given IV fluids in the order of 100 mL an hour. She hasn't bled since her arrival to the intensive care unit. She is calm and comfortable she is currently nothing by mouth. No abdominal pain. No nausea or vomiting. No weight loss. No bright red blood per rectum. She is never had Any EGDs. Never Had It Done Any Colonoscopies. No Other Complaints. No Alcoholism. No Liver Disease. Coags Are within Normal Limits. No previous bouts of GI bleed. Most recent hemoglobin this morning is at 7.8. The patient has not required any blood transfusion. The patient has been taking Motrin at home for osteoarthritis. She was prescribed 800 mg 3 times a day and she has been taken twice a day. She did have some vague GI discomfort/symptoms of dyspepsia along with intake of Motrin. No weight loss. No other Social Symptoms. On 06/20/2018 the patient is being seen in follow-up in the intensive care unit. She hasn't had any further episodes of bleeding. She is stable. She is hemodynamically stable. In fact her blood pressure is slightly on the higher side. No nausea. No vomiting. No abdominal pain. She IV Protonix. She is nothing by mouth. She'll be having a EGD today. She ruled out of the intensive care unit following her EGD. Dropped down to 8.0. The patient did not require any blood transfusion. Coags are within normal limits. Rest of the electrolytes are all within normal limits. He was seen again today 06/21/2018 in follow-up on the regular medical floor. She is awake and alert in no acute distress. No further evidence of bleeding. No pulmonary complaints. Maintaining good O2 saturations in the mid to upper 90s on room air. She's been afebrile. Hemodynamically stable. Yesterday's EGD revealed gastritis and duodenitis with deformity and alteration in the post bulbar area but no active bleeding. Current hemoglobin 8.9. Objective - Vital Signs Vital signs: Vital Signs Temp 98.5 F 06/21/18 06:34 Pulse 69 06/21/18 06:34 Resp 18 06/21/18 06:34 BP 138/83 06/21/18 06:34 Pulse Ox 96 06/21/18 06:34 Intake & Output 06/20/18 06/21/18 06/21/18 18:59 06:59 18:59 Intake Total 850 200 Output Total 1850 Balance -1000 200 Intake: IV 850 Sodium Chloride 0.9% 1, 800 000 ml @ 100 mls/hr IV . Q10H [facility] Rx#:[id number] Oral 200 Output: Urine 1850 Other: Voiding Method Toilet Toilet # Voids 1 1 - Exam The patient appeared well nourished and normally developed. Vital signs as documented. Head exam is unremarkable. No scleral icterus or corneal arcus noted. Neck is without jugular venous distension, thyromegaly, or carotid bruits. Carotid upstrokes are brisk bilaterally. Lungs are clear to auscultation and percussion. Cardiac exam reveals the PMI to be normally sized and situated. Rhythm is regular. First and second heart sounds normal. No murmurs, rubs or gallops. Abdominal exam reveals normal bowel sounds, no masses , no organomegaly and no aortic enlargement. Extremities are nonedematous and both femoral and pedal pulses are normal.Examination of the skin revealed no evidence of significant rashes, suspicious appearing nevi or other concerning lesions. Neurologically the patient is awake and alert and is no focal neurological deficit. - Labs CBC & Chem 7: 06/21/18 09:10 06/21/18 09:10 Labs: Abnormal Lab Results - Last 24 Hours (Table) 06/21/18 06/21/18 Range/Units 09: 09:10 RBC 2.73 L (3.80-5.40) m/uL Hgb 8.9 L (11.4-16.0) gm/dL Hct 27.8 L (34.0-46.0) % MCV 101.9 H (80.0-100.0) fL Chloride 110 H (98-107) mmol/L Glucose 126 H (74-99) mg/dL Assessment and Plan Assessment: Assessment 1 acute upper GI bleed. Patient presented with melanotic stool. She is hemodynamically stable and the most and hemoglobin is at8.0 She is on IV Protonix. No previous history of any GI bleed. Coagulation profile is within normal limits. EGD revealed gastritis and duodenitis with deformity and ulceration in the immediate post bulbar area but no active bleeding. 2 blood loss anemia with hemoglobin at 8 3 hypothyroidism 4 hypertension 5 osteoarthritis taken Motrin 800 mg twice a day Plan: The patient was seen and evaluated by Dr. Bruno. She remains table from the pulmonary and critical care standpoint. We'll follow the patient on as-needed basis. I, the cosigning physician, performed a history & physical examination of the patient. Lungs sounds are clear. Maintaining good O2 saturations in the 90s on room air. I discussed the assessment and plan of care with my nurse practitioner, Brie Faustin. I attest to the above note as dictated by her.
--- NOTE | 2018-06-21 23:45 | P.PN ---
Subjective Progress Note Date: 06/21/18 Principal diagnosis: Melena, anemia The patient doing well, no further melena reported. No abdominal pain. Tolerating diet. Objective - Vital Signs Vital signs: Vital Signs Temp 98.5 F 06/21/18 06:34 Pulse 69 06/21/18 06:34 Resp 18 06/21/18 06:34 BP 138/83 06/21/18 06:34 Pulse Ox 96 06/21/18 06:34 Intake & Output 06/21/18 06/21/18 06/22/18 06:59 18:59 06:59 Intake Total 400 Balance 400 Intake: Oral 400 Other: Voiding Method Toilet # Voids 1 1 # Bowel Movements 0 - Exam On physical examination, patient appears comfortable in no apparent distress. HEAD: Normocephalic, atraumatic. EYES: No scleral icterus. No conjunctival injection. MOUTH: No lesions, tongue midline. NECK: Trachea midline, no gross abnormalities. CHEST: Clear to auscultation with no wheezing or rhonchi appreciated. HEART: Regular rate and rhythm. ABDOMEN: Soft, obese. Bowel sounds are positive. No organomegaly. No guarding or rigidity. EXTREMITIES: No pedal edema. SKIN: No rashes, no jaundice. NEUROLOGIC: Alert and oriented x3. No focal deficits. - Labs CBC & Chem 7: 06/21/18 09:10 06/21/18 09:10 Labs: Abnormal Lab Results - Last 24 Hours (Table) 06/21/18 06/21/18 Range/Units 09:10 09:10 RBC 2.73 L (3.80-5.40) m/uL Hgb 8.9 L (11.4-16.0) gm/dL Hct 27.8 L (34.0-46.0) % MCV 101.9 H (80.0-100.0) fL Chloride 110 H (98-107) mmol/L Glucose 126 H (74-99) mg/dL Assessment and Plan (1) GI bleed Narrative/Plan: G findings of gastritis, duodenitis and duodenal bulb ulcer likely resulting in GI bleed. Also noted on upper GI was a small hiatal hernia. Status: Acute Code(s): K92.2 - GASTROINTESTINAL HEMORRHAGE, UNSPECIFIED SNOMED Code(s): 80124293 (2) Anemia Narrative/Plan: As above. Status: Acute Code(s): D64.9 - ANEMIA, UNSPECIFIED SNOMED Code(s): 687650559 Plan: Supportive care Okay for diet Continue Protonix daily Avoid NSAID use Continue to monitor for signs or symptoms of upper GI bleed Recommend use of Tylenol for osteoarthritis instead of NSAID Thank you for allowing us to participate in the care of this patient
--- NOTE | 2018-06-22 08:13 | DS ---
DISCHARGE SUMMARY DATE OF ADMISSION: 06/19/2018 DATE OF DISCHARGE: 06/21/2018 FINAL DIAGNOSES: 1. Acute upper gastrointestinal bleed. Patient having gastritis, duodenitis and duodenal bulb ulcer from taking NSAIDs. 2. Acute blood loss anemia from above. 3. Obesity, BMI 39.3. 4. Essential hypertension. 5. Hypothyroidism. 6. Primary osteoarthritis of multiple joints bilateral. HOSPITAL COURSE: This patient because of primary knee arthritis was taking naproxen for a long time, presented with dark bloody stools. EGD did show gastritis, duodenitis and duodenal ulcer. Given PPIs, doing much better at the time of discharge, hemoglobin is stable now at 8.9. On exam, abdomen soft, nontender. Lungs are clear. CONSULTATION: Dr. Burno from Critical Care and Dr. Bella from Gastroenterology. DISCHARGE MEDICATIONS: 1. Vitamin D3, 400 units p.o. daily. 2. Krill oil ointment chloride 150 mg a day. 3. Vitamin B complex 1 capsule a day. 4. Tylenol 650 mg q.4 p.r.n. 5. Maalox 30 mL q.4h p.r.n. 6. Prilosec 20 mg a.c. b.i.d. 7. Catapres 0.1 mg p.o. b.i.d. FOLLOWUP: Follow up with Dr. Benton 06/28/2018, Dr. Brand on 07/15/2018, CBC 06/24/18. The patient did go on a soft bland diet and not take NSAIDs. DISCUSSION: Discharge planning more than [address] Baltazar Benton. RICK / CONCHISN: [id number] /
== END 2018-06-21 14:14 | disposition home or self-care (01) | DRG 378 ==
LOC: EC 13:29 → 5MS5E 15:10 → 6ICU 20:53 → OBSVTOIN 06-19 10:19 → 4MS4W 06-20 21:48
PROVIDERS: ADMIT Hospitalist; ATTEND Hospitalist
PROC: 0DB78ZX Excision of Stomach, Pylorus, Via Natural or Artificial Opening Endoscopic, Diagnostic (ICD-10-PCS; principal; 2018-06-20 07:30)
DX: K29.81 Duodenitis with bleeding (principal); D62 Acute posthemorrhagic anemia; K29.71 Gastritis, unspecified, with bleeding; K26.4 Chronic or unspecified duodenal ulcer with hemorrhage; E66.9 Obesity, unspecified; E89.0 Postprocedural hypothyroidism; I10 Essential (primary) hypertension; K44.9 Diaphragmatic hernia without obstruction or gangrene; M17.10 Unilateral primary osteoarthritis, unspecified knee; T39.395A Adverse effect of other nonsteroidal anti-inflammatory drugs [NSAID], initial encounter; Z85.850 Personal history of malignant neoplasm of thyroid; Z68.39 Body mass index [BMI] 39.0-39.9, adult; Z90.710 Acquired absence of both cervix and uterus; Z90.49 Acquired absence of other specified parts of digestive tract; Z79.1 Long term (current) use of non-steroidal anti-inflammatories (NSAID); Z79.890 Hormone replacement therapy; Z79.899 Other long term (current) drug therapy; Z88.1 Allergy status to other antibiotic agents; Z88.2 Allergy status to sulfonamides
CPT/HCPCS: 36415; 43239; 80048; 80053; 82550; 82553; 83036; 83735; 84100; 84484; 85025; 85027; 85610; 85730; 86850; 86900; 86901; 88305; 96361; 96374; 99285

== ENCOUNTER → 2023-01-04 | Outpatient (CLI) | payer MEDICARE, BC ==
--- NOTE | 2023-01-04 23:22 | MR ---
EXAMINATION TYPE: MR lumbar spine wo con DATE OF EXAM: 01/04/2023 COMPARISON: Lumbar spine x-ray December 07, 2022 HISTORY: Low back pain into left side for 15 months per patient. Degenerative disc disease per order. TECHNIQUE: Multiplanar, multisequence imaging of the lumbar spine is performed without IV contrast. FINDINGS: There is dextroconvex scoliosis centered in the mid lumbar spine redemonstrated. Sagittal i mages of the lumbar spine show vertebral body heights to appear satisfactory. There is grade 1 retrol isthesis L1 on L2, L2 on L3, L3 on L4, and L4 on L5. Multilevel disc desiccation and disc space narro wing with relative sparing of L3-L4 level. Predominantly moderate disc space narrowing and anterior s purring is seen. Heterogeneous reticular endplate changes centered in the upper to mid lumbar spine a nd at the lumbosacral junction is noted. The conus medullaris is normal in position and signal ending superior L1 level. There are posterior disc herniations efface the anterior thecal sac at T9-T10 le julio cesar and slightly larger at T10-T11 level sagittal image 9 noted. Axial images at T12-L1 level show mild broad disc bulge mildly effacing the anterior thecal sac along with mild right-sided facet arthropathy and ligamentum flavum hypertrophy mildly effacing right post erolateral thecal sac. Patent bilateral neural foramina are seen Axial images at L1-L2 level show spondylolisthesis with moderate broad-based posterior disc protrusio n mildly effacing the anterior thecal sac along and with mild facet arthropathy and ligamentum flavum hypertrophy effacing left posterior lateral thecal sac. There is mild right-sided anterior inferior neural foraminal narrowing. Axial images at L2-L3 level show spondylolisthesis with mild broad-based posterior disc protrusion an d mild to moderate facet arthropathy and ligamentum flavum hypertrophy effacing the anterior and left posterior lateral thecal sac. There is no significant neural foraminal narrowing. Axial images at L3-L4 level show moderate facet arthropathy and ligamentum flavum hypertrophy effacin g the left posterior lateral thecal sac. There is mild broad disc bulge mildly effacing the anterior thecal sac. There is asymmetric moderate to severe left-sided neural foraminal narrowing. Right-sided neural foramina is patent. Axial images at L4-L5 level show moderate to advanced facet arthropathy and ligamentum flavum hypertr ophy effacing posterior lateral thecal sac. There is a lobulated posterior disc protrusion effacing t he anterior thecal sac with right paracentral component causing moderate right-sided neural foraminal narrowing. Left-sided neural foramen is patent. Axial images at L5-S1 level show moderate facet arthropathy and ligamentum flavum hypertrophy. There is focal central disc protrusion but spinal canal is preserved as there is increased epidural fat. Th ere is right eccentric disc herniation causing moderate right-sided neural foraminal narrowing and ef facing the right L5 nerve extraforaminal level sagittal image 15 and axial image 4. No suspicious incidental retroperitoneal findings are seen. IMPRESSION: Scoliosis and Multilevel spondylolisthesis and degenerative change in the lumbar spine as detailed above.
== END | disposition home or self-care (01) ==
LOC: RADMRIMAIN 06:41
PROVIDERS: ATTEND Physician Assistant Medical
DX: M51.36 Other intervertebral disc degeneration, lumbar region (principal); M47.816 Spondylosis without myelopathy or radiculopathy, lumbar region; M43.16 Spondylolisthesis, lumbar region; M41.9 Scoliosis, unspecified
CPT/HCPCS: 72148

== ENCOUNTER → 2023-02-01 | Outpatient (CLI) | payer MEDICARE, BC ==
[2023-02-01 13:58] VITALS: BP 175/105; PULSE 82; RESP 18; TEMP 97.7
--- NOTE | 2023-02-01 15:31 | P.PAINPG ---
PQRS Measure Charge Sheet Comment: A 67 yr old female with a history of severe and chronic LBP secondary to lumbar DDD and spondylosis with facet arthropathy without myelopathy presents today for medication management. Pain level is provoked at 7/10 in intensity, constant, localized in the lumbar spine, achy in character w shooting towards the knees, L>R. Pain is provoked by bending, lifting. Pain is alleviated with medications, topical CBD, chiropractic treatments semi monthly > 6 wks which she is currently in, sitting, massage pad use at home, repositioning and rest. Reviewed MRI results w pt. Interventional pain procedures completed include None Patient is currently on Tramadol, Neurontin, Cymbalta, Ibu Patient denies any side effects of the medication(s), denies excessive drowsiness or sleepiness, denies suicidal ideation and reports that the current pain medication is helping to control the pain and improve activities of daily living. Patient denies any motor or sensory deficits. Patient denies any fever or night sweats, denies any change in the bowel movements or urination. Physical Examination: -Constitutional: Cooperative. Not in acute distress . - Neurologic: Cranial nerve II to XII intact. No focal neurological deficits. - Psychatric: Alert & oriented x 3. Matching mood & appropriate affect. Judgment and insight intact. - Musculoskeletal: Cervical spine: Muscle bulk/ tone/ strength in the bilateral upper extremities normal Vertebral body tenderness to palpation over Spurling test positive Distraction test positive Facet loading test positive TTP Thoracic spine Muscle bulk / tone/ strength in the bilateral paraspinal muscles normal Vertebral body tender to palpation over Facet loading test positive TTP Lumbar spine: Motor bulk/ tone/ strength lower extremities , thigh and legs : 5/5 Deep tendon reflexes : Normal Knee Jerk. Normal Ankle Jerk . Vertebral body tenderness to palpation over L4 Lumbar Facet Loading Test positive Straight Leg Raise: positive at 30 degrees right side/ left side Gaenslen's Test positive Sacral spine : Severe tenderness over the Sacroiliac joint: right side / left side Range of motion: Flexion of the lumbar spine <60 degrees Range of motion: Extension of the lumbar spine <20 degrees Gaenslen's Test positive right side / left side Ever test: positive right side / left side Thigh Thrust Test positive right side / left side Sacral Thrust Test positive right side / left side Imaging: MRI without contrast of the lumbar spine from 01/04/23 reviewed Assessment and plan: Chronic LBP secondary to lumbar DDD, spondylosis with facet arthropathy without myelopathy Recommendation of GRIS L4-L5 #1. May need a series of injections for optimal pain relief. Risks, benefits of procedure discussed adn pt verbalized understanding. Protocol for discontinuation/ continuation of medications surrounding procedure discussed. Chronic and current use of high-risk medication (Opioids). The patient was counseled about risk of opioid use, psychological risk associated with opioids and was orally counseled to not overuse , divert or sell medications. Pt is to store medication in a safe location. The patient is counseled against driving while using narcotic medications and also not to use alcohol or any illicit recreational drugs. Patient verbalized understanding that the lack of compliance will result in failure to renew narcotic prescription(s) as well as possible discharge from the clinic Diagnoses, prognosis and treatment options including but not limited to physical therapy, surgical interventions, interventional therapies and medication management including narcotics and adjuvant medication were discus sed. All patient questions answered MAPS reviewed and it was appropriate. Prescription refill for Tramadol #60 w 1 RF. I have spent less than 30 minutes on patient care today. Dr Duarte was available by phone for the evaluation of this patient. The time was used to review the medical records including relevant urine studies and Prescription history (MAPs), review of the available imaging, evaluation and examination of the patient, coordination of care with the medical staff and if applicable referring physicians, as well as creation of the medical record PQRS Narrative: Smoking Status Never smoker Hx Alcohol Use (MH) No Home Medications: Ambulatory Orders Cholecalciferol [Vitamin D3 (10 Mcg = 400 Iu)] 400 unit PO DAILY 06/18/18 Krill Oil 500 mg PO DAILY 06/18/18 Thyroid, Pork [[place] Thyroid] 30 mg PO DAILY 06/18/18 Thyroid,Pork [[place] Thyroid] 120 mg PO DAILY 06/18/18 Vitamin B Complex 1 cap PO DAILY 06/18/18 Acetaminophen Tab [Tylenol] 650 mg PO Q4HR PRN tab 06/21/18 Mag Hydrox/Al Hydrox/Simeth [Maalox] 30 ml PO Q4HR PRN cup 06/21/18 Omeprazole [PriLOSEC] 20 mg PO AC-BID #60 cap 06/21/18 cloNIDine HCL [Catapres] 0.1 mg PO BID #60 tab 06/21/18 traMADol HCl [Ultram] 50 mg PO Q12HR PRN 30 Days #60 tab 02/01/23 Controlled Substance Measures - Controlled Substance Measures Is patient prescribed a controlled substance at discharge?: Yes When asked, does pt state using other controlled substances?: Yes If prescribed controlled substance>3 days was MAPS reviewed?: Yes
== END ==
LOC: PNWHC3 12:24
PROVIDERS: ATTEND Specialist
DX: M51.36 Other intervertebral disc degeneration, lumbar region (principal); M47.816 Spondylosis without myelopathy or radiculopathy, lumbar region; G89.29 Other chronic pain; Z79.891 Long term (current) use of opiate analgesic; Z88.0 Allergy status to penicillin; Z88.2 Allergy status to sulfonamides; Z88.8 Allergy status to other drugs, medicaments and biological substances
CPT/HCPCS: 99211

== ENCOUNTER 2023-03-02 09:16 | Day surgery (SDC) | payer MEDICARE, BC ==
[2023-02-25 17:50] VITALS: BMI 41.0
[~2023-03-02 09:16] MED LIST: LACTATED RINGERS 1,000 ML IV SCH; LIDOCAINE 1% (10MG/ML) FOR IV START INTRADERMA PRN
[2023-03-02 09:37] VITALS: TEMP 97.8
[2023-03-02] MEDS ORDERED: fentaNYL (PF) 50 MCG/ML 2 ML AMP ONE (09:58)
[2023-03-02] MEDS ORDERED: MIDAZOLAM 2 MG/2 ML VIAL ONE (09:58)
[2023-03-02] MEDS ORDERED: IOPAMIDOL M200 10 ML VIAL ONE (09:58)
[2023-03-02] MEDS ORDERED: methylPREDNISolone ACETATE 80 MG/ML 1 ML VIAL ONE (09:58)
--- NOTE | 2023-03-02 10:06 | P.PCN ---
Date of Procedure: 03/02/23 Procedure(s) Performed: PREOPERATIVE DIAGNOSIS: 1- Lumbar Degenerative Disc Diseases 2-Lumbar spondylosis with Facet arthropathy without myelopathy. POSTOPERATIVE DIAGNOSIS: 1-lumbar degenerative disc disease. 2-lumbar spondylosis with facet arthropathy without myelopathy. PROCEDURE 1. Lumbar epidural steroid injection under fluoroscopic guidance at the L4-5 level. (Fluoroscopy imaging was available in radiology department) 2. Lumbar epidurogram. ANESTHESIA: moderate sedation with intravenous Versed 2 mg ,and fentanyle 50 Mcg Sedation start time : 1000 Sedation end time : 1004 EBL: Minimal PROCEDURE INDICATION: The patient with low back pain and radiculitis symptoms unresponsive to conservative treatment. Fluoroscopy was used to optimize visualization of the needle placement and to maximize safety. PROCEDURE DESCRIPTION / TECHNIQUE: The patient was seen and identified in the preoperative area. Risks, benefits, complications including but not limited to infections ,bleeding ,allergic reacti on to the medications ,nerve damage and not complete pain releife , and alternatives were discussed with the patient. The patient agreed to proceed with the procedure and signed the consent. IV was started, and vital signs were stable. Patient was taken to the OR and time out was completed. The patient was placed in the prone position on procedure table and a pillow was placed under the abdomen to reduce lumbar lordosis. The lumbosacral area was prepped and draped in the usual sterile fashion.ere closely monitored during the procedure. Conscious sedation was used during the procedure to decrease patients anxiety. Vital signs was monitered during the entire procedure. Using anterior-posterior fluoroscopy, the L4-5 interlaminar space was identified and the skin over this site was marked and then infiltrated with 1% lidocaine subcutaneously. Subsequently, a 20-gauge Tuohy epidural needle was inserted and advanced toward the epidural space using the ``Loss of resistance technique and guided by AP and lateral fluoroscopy. The correct needle position in the epidural space was verified with the injection of 2 mL of the water soluble contrast dye Isovue 200 contrast and observing an excellent epidurogram with the epidural spread of the dye, after negative aspiration for blood and CSF and in the absence of paresthesias. Again after negative aspiration, a 6 ml mixture containing 80 mg of Depo-medrol ( Preservetive Free ), and 2 ml of preservative free Normal Saline, and 2 ml of preservative free lidocaine 1% solution was injected and a washout of epidurogram was seen. Needle was withdrawn intact, skin was cleansed, and bandages were applied. COMPLICATIONS: None DISPOSITION / PLANS: The patient was placed in a supine position and transferred to the recovery area in a stable condition for observation. There was no evidence of lower extremity motor or sensory deficit after the procedure. Patient was discharged from the recovery room after meeting discharge criteria. Home discharge instructions were given to the patient by the staff. The patient was reexamined prior to discharge. The patient will schedule a follow up in the clinic in 2-4 weeks.
[2023-03-02] MEDS ORDERED: LACTATED RINGERS 1,000 ML IV ONE (10:10)
[2023-03-02 10:37] VITALS: BP 144/70; PULSE 67; RESP 17
--- NOTE | 2023-03-02 15:24 | FL ---
Intraoperative/procedural fluoroscopic services were provided. Total fluoroscopy time is 2 seconds wi th a total of 1 submitted images to PACS. Please see the operative/procedural note for further detail s. DAP: [id number]
== END 2023-03-02 10:49 | disposition home or self-care (01) ==
LOC: ORPAIN 09:16
PROVIDERS: ATTEND Specialist
DX: M51.16 Intervertebral disc disorders with radiculopathy, lumbar region (principal); M47.26 Other spondylosis with radiculopathy, lumbar region; Z88.2 Allergy status to sulfonamides; Z88.8 Allergy status to other drugs, medicaments and biological substances
CPT/HCPCS: 62323; J2250; J1040; J3010; Q9966

== ENCOUNTER → 2023-04-01 | Outpatient (CLI) | payer MEDICARE, BC ==
[2023-04-01 09:27] VITALS: BP 157/92; PULSE 82; RESP 18; TEMP 98.4
--- NOTE | 2023-04-01 15:00 | P.PAINPG ---
PQRS Measure Charge Sheet Comment: A 67 yr old female with a history of severe and chronic LBP secondary to lumbar DDD and spondylosis with facet arthropathy without myelopathy presents today for evaluation s/p GRIS L4-L5. Pt states she experienced 100 % pain relief x 2 wks s/p procedure. Pain level is provoked at 8/10 in intensity, constant, localized in the L lumbar spine, burning in character w shooting towards the LLE. Pain is provoked by heat, standing/ walking for periods of 15 min or more. Pain is alleviated with chiropractic treatments semi monthly for last 1 1/2 yrs, medications, topical, ice, repositioning and rest. Interventional pain procedures completed include GRIS L4-L5 x1 Patient is currently on Tramadol Patient denies any side effects of the medication(s), denies excessive drowsiness or sleepiness, denies suicidal ideation and reports that the current pain medication is helping to control the pain and improve activities of daily living. Patient denies any motor or sensory deficits. Patient denies any fever or night sweats, denies any change in the bowel movements or urination. Physical Examination: -Constitutional: Cooperative. Not in acute distress . - Neurologic: Cranial nerve II to XII intact. No focal neurological deficits. - Psychatric: Alert & oriented x 3. Matching mood & appropriate affect. Judgm ent and insight intact. - Musculoskeletal: Cervical spine: Muscle bulk/ tone/ strength in the bilateral upper extremities normal Vertebral body tenderness to palpation over Spurling test positive Distraction test positive Facet loading test positive TTP Thoracic spine Muscle bulk / tone/ strength in the bilateral paraspinal muscles normal Vertebral body tender to palpation over Facet loading test positive TTP Lumbar spine: Motor bulk/ tone/ strength lower extremities , thigh and legs : 5/5 Deep tendon reflexes : Normal Knee Jerk. Normal Ankle Jerk . Vertebral body tenderness to palpation over Rhoades Test positive Lumbar Facet Loading Test positive over BL L4-L5, L5-S1 Straight Leg Raise: positive at 30 degrees right side/ left side Gaenslen's Test positive Sacral spine : Severe tenderness over the Sacroiliac joint: right side / left side Range of motion: Flexion of the lumbar spine <60 degrees Range of motion: Extension of the lumbar spine <20 degrees Gaenslen's Test positive right side / left side Ever test: positive right side / left side Thigh Thrust Test positive right side / left side Sacral Thrust Test positive right side / left side Assessment and plan: Chronic LBP secondary to lumbar DDD, spondylosis with facet arthropathy without myelopathy Recommendation of BL MBB L4-L5, L5-S1 #1. May need a series of injections, up until RFA, for optimal pain relief. Risks, benefits of procedure discussed and pt verbalized understanding. Admits to anticoagulant use or medical history of diabetes. Protocol for discontinuation/ continuation of medications silvia procedure discussed. Minimal anesthesia provided, if clinically indicated, consisting of Versed and Fentanyl. All questions answered. I have spent less than 30 minutes on patient care today. Dr Duarte was available by phone for the evaluation of this patient. The time was used to review the medical records including relevant urine studies and Prescription history (MAPs), review of the available imaging, evaluation and examination of the patient, coordination of care with the medical staff and if applicable referring physicians, as well as creation of the medical record 6 PQRS Narrative: Smoking Status Never smoker Hx Alcohol Use (MH) No Home Medications: Ambulatory Orders Krill Oil 500 mg PO DAILY 06/18/18 Thyroid, Pork [[place] Thyroid] 30 mg PO SUTUTHSA 06/18/18 Thyroid,Pork [[place] Thyroid] 120 mg PO DAILY 06/18/18 Vitamin B Complex 1 cap PO DAILY 06/18/18 Acetaminophen Tab [Tylenol] 650 mg PO Q4HR PRN tab 06/21/18 Omeprazole [PriLOSEC] 20 mg PO AC-BID #60 cap 06/21/18 traMADol HCl [Ultram] 50 mg PO Q12HR PRN 30 Days #60 tab 02/01/23 Cholecalciferol [Vitamin D3 (25 Mcg = 1000 Iu)] 50 mcg PO HS 02/25/23 DULoxetine HCL [Cymbalta] 30 mg PO HS 02/25/23 Gabapentin 600 mg PO TID 02/25/23 Magnesium 250 mg PO HS 02/25/23 Thyroid, Pork [[place] Thyroid] 60 mg PO MOWEFR 02/25/23 cloNIDine HCL [Catapres] 0.1 mg PO HS 02/25/23 Controlled Substance Measures - Controlled Substance Measures Is patient prescribed a controlled substance at discharge?: No
== END ==
LOC: PNWHC3 08:51
PROVIDERS: ATTEND Specialist
DX: M51.37 Other intervertebral disc degeneration, lumbosacral region (principal); M47.817 Spondylosis without myelopathy or radiculopathy, lumbosacral region; G89.29 Other chronic pain; Z88.2 Allergy status to sulfonamides; Z88.0 Allergy status to penicillin; Z88.1 Allergy status to other antibiotic agents
CPT/HCPCS: 99211

== ENCOUNTER 2023-04-30 10:46 | Day surgery (SDC) | payer MEDICARE, BC ==
[2023-04-30 11:09] VITALS: TEMP 97.4
[2023-04-30] MEDS ORDERED: ROPIVACAINE 5 MG/ML 20 ML AMPULE ONE (12:21)
[2023-04-30] MEDS ORDERED: methylPREDNISolone ACETATE 40 MG/ML 1 ML VIAL ONE (12:21)
--- NOTE | 2023-04-30 12:46 | P.PCN ---
Date of Procedure: 04/30/23 Procedure(s) Performed: PREOPERATIVE DIAGNOSIS : 1- Lumbar spondylosis with Facet Arthropathy without myelopathy . 2- Lumber degenerative disc disease POSTOPERATIVE DIAGNOSIS: 1- Lumbar spondylosis with Facet Arthropathy without myelopathy . 2- Lumber degenerative disc disease PROCEDURE: Diagnostic bilateral L3 , L4 , and L5 medial branch block under fluoroscopy guidance(fluoroscopy images available in the radiology Department ) ( To target the facet joint between Bilateral L4-5 , and L5-S1 )#1st ANESTHESIA:,Local anesthesia with ropivacaine 0.5% 6 emend for skin and subcu infiltration . EBL: Minimal COMPLICATION: None PROCEDURE INDICATION: Chronic low back pain secondary to Facet arthropathy unresponsive to conservative treatment. PROCEDURE DESCRIPTION: the patient was seen and identified in the preop holding area , risks and benefits and possible complications of the procedure and alternative were discussed with the patient, and the patient agreed to proceed with the procedure and signed the consent and vital signs monitored during the procedure and fluoroscopy was used to maximize the benefit and accuracy of the needle placement, and sedation was given to decrease patient anxiety, patient was taken to the procedure room and placed in prone position vital signs monitored in the back prepped with chlorhexidine X3 then under strict sterile technique using a right oblique fluoroscopy ,the junction of the transverse process and the superior articulating process of the right L3 , L4 , and L5 vertebra which corresponding to the fluoroscopy image of the eye of the Giovani dog on the block side for the medial branches and subsequently , after local infiltration of skin and subcu tissuies with Ropivacaine 0.5 % , one mL at each level ,then 22-gauge Quincke-type needles , 3 needle was used , each one of them placed at the junction of the base of the transverse process and the superior articular process at the appropriate level, and the needle was advanced until the periosteum contacted, needle placement confirmed with AP oblique and lateral view and after appropriate needle placement confirmed, and after negative aspiration for heme and CSF and there was no paresthesia 1-1/2 mL of Ropivacaine 0.5% mixed with 20 mg Depo-Medrol , then half mL injected at each level after negative aspiration the needle subsequently removed and the same pr ocedure repeated for the left side at left side at L3 , L4 and L5 levels. At the end of the procedure and the needles removed and a bandage applied after the skin was cleaned the cleaning solution patient taken to recovery room in stable condition and monitors in the recovery room for 20-30 minutes and discharged home in stable condition after discharge criteria met and patient will follow up with the pain clinic in 2-4 weeks note= next time I recommend to use 5 inch long needles
[2023-04-30 12:50] VITALS: RESP 18
[2023-04-30] MEDS ORDERED: ONDANSETRON ODT 4 MG TAB PO ONE (12:50)
--- NOTE | 2023-04-30 12:59 | FL ---
EXAMINATION TYPE: FL guided pain mgmt statistic DATE OF EXAM: 04/30/2023 HISTORY: G89.29, M47.817 LUMBAR RADICULOPATHY BILATERAL LUMBAR RADICULOPATHY. FLUORO TIME 35 SECONDS. DAP [id number]. 4 IMAGES SENT.
[2023-04-30 13:10] VITALS: BP 142/73; PULSE 78
== END 2023-04-30 13:27 | disposition home or self-care (01) ==
LOC: ORPAIN 10:46
PROVIDERS: ATTEND Specialist
DX: M51.36 Other intervertebral disc degeneration, lumbar region (principal); M47.816 Spondylosis without myelopathy or radiculopathy, lumbar region; G89.29 Other chronic pain
CPT/HCPCS: 64493; 64494 ×2; J1030; J2795

== ENCOUNTER → 2023-05-19 | Outpatient (CLI) | payer MEDICARE, BC ==
--- NOTE | 2023-05-19 14:33 | P.PAINPG ---
PQRS Measure Charge Sheet Comment: A 67 yr old female with a history of severe and chronic LBP secondary to lumbar DDD and spondylosis with facet arthropathy without myelopathy presents today for evaluation s/p BL MBB L4-L5, L5 -S1 #1. Pt states she experienced 100 % pain relief x 8 hrs s/p procedure. Pain level is provoked at 8/10 in inten sity, constant, localized in the L lumbar spine, burning in character w shooting towards the LLE. Pain is provoked by heat, standing/ walking for periods of 15 min or more. Pain is alleviated with chiropractic treatments semi monthly for last 1 1/2 yrs, medications, topical, ice, repositioning and rest. Oswestry axial pain score of 36. Interventional pain procedures completed include GRIS L4-L5 x1, BL MBB L3-L5 x1 Patient is currently on Tramadol Patient denies any side effects of the medication(s), denies excessive drowsiness or sleepiness, denies suicidal ideation and reports that the current pain medication is helping to control the pain and improve activities of daily living. Patient denies any motor or sensory deficits. Patient denies any fever or night sweats, denies any change in the bowel movements or urination. Physical Examination: -Constitutional: Cooperative. Not in acute distress . - Neurologic: Cranial nerve II to XII intact. No focal neurological deficits. - Psychatric: Alert & oriented x 3. Matching mood & appropriate affect. Judgment and insight intact. - Musculoskeletal: Cervical spine: Muscle bulk/ tone/ strength in the bilateral upper extremities normal Vertebral body tenderness to palpation over Spurling test positive Distraction test positive Facet loading test positive TTP Thoracic spine Muscle bulk / tone/ strength in the bilateral paraspinal muscles normal Vertebral body tender to palpation over Facet loading test positive TTP Lumbar spine: Motor bulk/ tone/ strength lower extremities , thigh and legs : 5/5 Deep tendon reflexes : Normal Knee Jerk. Normal Ankle Jerk . Vertebral body tenderness to palpation over Rhoades Test positive Lumbar Facet Loading Test positive over BL L4-L5, L5-S1 Straight Leg Raise: positive at 30 degrees right side/ left side Gaenslen's Test positive Sacral spine : Severe tenderness over the Sacroiliac joint: right side / left side Range of motion: Flexion of the lumbar spine <60 degrees Range of motion: Extension of the lumbar spine <20 degrees Gaenslen's Test positive right side / left side Ever test: positive right side / left side Thigh Thrust Test positive right side / left side Sacral Thrust Test positive right side / left side Assessment and plan: Chronic LBP secondary to lumbar DDD, spondylosis with facet arthropathy without myelopathy Recommendation of BL MBB L4-L5, L5-S1 #2. May need a series of i njections, up until RFA, for optimal pain relief. Risks, benefits of procedure discussed and pt verbalized understanding. Admits to anticoagulant use or medical history of diabetes. Protocol for discontinuation/ continuation of medications silvia procedure discussed. Minimal anesthesia provided, if clinically indicated, consisting of Versed and Fentanyl. All questions answered. I have spent less than 30 minutes on patient care today. Dr Duarte was available by phone for the evaluation of this patient. The time was used to review the medical records including relevant urine studies and Prescription history (MAPs), review of the available imaging, evaluation and examination of the patient, coordination of care with the medical staff and if applicable referring physicians, as well as creation of the medical record PQRS Narrative: Smoking Status Never smoker Hx Alcohol Use (MH) No Home Medications: Ambulatory Orders Krill Oil 500 mg PO DAILY 06/18/18 Thyroid, Pork [[place] Thyroid] 30 mg PO SUTUTHSA 06/18/18 Thyroid,Pork [[place] Thyroid] 120 mg PO DAILY 06/18/18 Vitamin B Complex 1 cap PO DAILY 06/18/18 traMADol HCl [Ultram] 50 mg PO Q12HR PRN 30 Days #60 tab 02/01/23 Cholecalciferol [Vitamin D3 (25 Mcg = 1000 Iu)] 50 mcg PO HS 02/25/23 DULoxetine HCL [Cymbalta] 30 mg PO HS 02/25/23 Magnesium 250 mg PO HS 02/25/23 Thyroid, Pork [[place] Thyroid] 60 mg PO MOWEFR 02/25/23 cloNIDine HCL [Catapres] 0.1 mg PO HS 02/25/23 Ibuprofen [Advil] 200 - 400 mg PO Q6HR PRN 04/28/23 Omeprazole [PriLOSEC] 20 mg PO DAILY 04/28/23 Pregabalin [Lyrica] 150 mg PO BID 05/19/23 Controlled Substance Measures - Controlled Substance Measures Is patient prescribed a controlled substance at discharge?: No
[2023-05-19 14:42] VITALS: BP 159/74; PULSE 79; RESP 14; TEMP 98.4
== END ==
LOC: PNWHC3 13:48
PROVIDERS: ATTEND Specialist
DX: M51.37 Other intervertebral disc degeneration, lumbosacral region (principal); M47.817 Spondylosis without myelopathy or radiculopathy, lumbosacral region; G89.29 Other chronic pain; Z88.0 Allergy status to penicillin; Z88.2 Allergy status to sulfonamides; Z88.1 Allergy status to other antibiotic agents
CPT/HCPCS: 99211

== ENCOUNTER 2023-07-30 11:00 | Day surgery (SDC) | payer MEDICARE, BC ==
[2023-07-27 16:26] VITALS: BMI 42.5
[2023-07-30 11:27] VITALS: TEMP 96.8
[2023-07-30] MEDS ORDERED: ROPIVACAINE 5MG/ML 20ML VIAL ONE (11:31)
[2023-07-30] MEDS ORDERED: MIDAZOLAM 2 MG/2 ML VIAL ONE (11:31)
[2023-07-30] MEDS ORDERED: TRIAMCINOLONE ACETONIDE 40 MG/ML 1 ML VIAL ONE (11:31)
[2023-07-30] MEDS ORDERED: fentaNYL (PF) 50 MCG/ML 2 ML AMP ONE (11:31)
--- NOTE | 2023-07-30 11:59 | P.PCN ---
Date of Procedure: 07/30/23 Surgeon: Brenda Frazier Pathology: none sent Condition: stable Disposition: PACU Description of Procedure: PREOPERATIVE DIAGNOSIS: Lumbar spondylosis without myelopathy POSTOPERATIVE DIAGNOSIS: Lumbar spondylosis without myelopathy PROCEDURES : Bilateral Radiofrequency thermocoagulation L4-L5, and L5-S1 medial branch, with fluoroscopic guidance ANESTHESIA: Local with lidocaine 1% using 25-gauge needle and IV moderate conscious sedation by the anesthesia Department Physician: Brenda Frazier MD EBL: Minimal PROCEDURE INDICATION: The patient with low back pain secondary to lumbar facet arthropathy who had significant relief of pain with previous diagnostic lumbar medial branch block with Ropivacaine0.5%. PROCEDURE DESCRIPTION / TECHNIQUE: The patient was seen and identified in the preoperative area. Risks, benefits, complications, including but not limited to risk of infection ,bleeding , allergic reactions to the medications and no complete pain relief , and alternatives were discussed with the patient, the patient agreed to proceed with the procedure and signed the consent. IV was started. Vital signs remained stable throughout the procedure. Patient was taken to the OR and time out was completed. The patient was placed in the prone position on the procedure table. The lumber area was prepped and draped in the usual sterile fashion. . Vital signs were closely monitored during the procedure .IV sedation was used during the procedure to decrease patients anxiety. The target points were identified as follows: For the L5-S1 level which corresponds to the dorsal ramus of L5 the target point was at the superior medial aspect of the sacral ala on the Rt side of the spine on the AP view of fluoroscopy and for the L3, and L4 medial branches the target points were at t he connection between the transverse process and the superior articular process of L4, and L5 vertebra respectively on the Rt oblique view of fluoroscopy. skin was marked, and localized with 1% lidocaineat these points. Subsequently, an 18 [id number] radiofrequency needles with a 10-mm curved active tips were advanced guided by fluoroscopy to each of the target points mentioned above in a superior medial direction to get the active tips as parallel as possible to the medial branches tracks. AP, oblique, and lateral views of fluoroscopy were used to verify needle tips position. Each level then underwent motor testing at 2.5 Hz and 0 to 3 volt with local stimulation, but no radicular symptoms down the legs. I then injected 1 mL of lidocaine 1% in each needle before starting radiofrequency thermocoagulation at 80 degrees celsius for 90 seconds. After that I injected 1 ml of PF Ropivacaine 0.5%(3 mls) with 40 mg of Kenalog, 1 mL of this mixture was given in each needle before taking the needles out intact. Then the left side with the same levels was done in the same manner. At the end of the procedure, the skin was cleansed and bandages were applied. A copy of needle placement fluoroscopy was saved on the C-arm machine. COMPLICATIONS: No acute complications. DISPOSITION / PLANS: The patient was placed in a supine position and transferred to the recovery area in a stable condition for observation and was discharged from the recovery room after meeting discharge criteria. Home discharge instructions given to the patient by the staff. The patient was reexamined prior to discharge. The patient will schedule a follow up in the clinic in 2-4 weeks.
[2023-07-30] MEDS ORDERED: IV FLUID CONTINUATION 1,000 ML IV ONE (12:03)
--- NOTE | 2023-07-30 12:13 | FL ---
Fluoroscopy History: PAIN fl time 31.7 sec DAP [id number]
[2023-07-30 12:50] VITALS: BP 153/80; PULSE 71; RESP 16
== END 2023-07-30 12:50 | disposition home or self-care (01) ==
LOC: ORPAIN 11:00
PROVIDERS: ATTEND Anesthesiology
DX: M47.816 Spondylosis without myelopathy or radiculopathy, lumbar region (principal); I10 Essential (primary) hypertension; E03.9 Hypothyroidism, unspecified; K21.9 Gastro-esophageal reflux disease without esophagitis; Z88.0 Allergy status to penicillin; Z79.890 Hormone replacement therapy; Z79.899 Other long term (current) drug therapy
CPT/HCPCS: 64635; 64636 ×2; J2250; J3301; J3010; J2795

== ENCOUNTER → 2023-08-30 | Outpatient (CLI) | payer MEDICARE, BC ==
--- NOTE | 2023-08-30 12:32 | P.PAINPG ---
PQRS Measure Charge Sheet Comment: A 67 yr old female with a history of severe and chronic LBP secondary to lumbar DDD and spondylosis with facet arthropathy without myelopathy presents today for evaluation s/p BL RFA L4-L5, L5 -S1. Pt states she experienced 95 % pain relief for the last 4 wks s/p procedure. Pain level is provoked at 3/10 in intensity, constant, predominantly axial, localized in the lumbar spine, burning in character w occasional shooting towards the BLEs, L > R. Pain is provoked by heat, standing/ walking for periods of 15 min or more. Pain is alleviated with injections, chiropractic treatments semi monthly for last 1 1/2 yrs, medications, topical, ice, repositioning and rest. Oswestry axial pain score of 21. Interventional pain procedures completed include GRIS L4-L5 x1, BL RFA L3-L5 (Jul 2023) Patient is currently on Tramadol Patient denies any side effects of the medication(s), denies excessive drowsiness or sleepiness, denies suicidal ideation and reports that the current pain medication is helping to control the pain and improve activities of daily living. Patient denies any motor or sensory deficits. Patient denies any fever or night sweats, denies any change in the bowel movements or urination. Physical Examination: -Constitutional: Cooperative. Not in acute distress . - Neurologic: Cranial nerve II to XII intact. No focal neurological deficits. - Psychatric: Alert & oriented x 3. Matching mood & appropriate affect. Judgment and insight intact. - Musculoskeletal: Cervical spine: Muscle bulk/ tone/ strength in the bilateral upper extremities normal Vertebral body tenderness to palpation over Spurling test positive Distraction test positive Facet loading test positive TTP Thoracic spine Muscle bulk / tone/ strength in the bilateral paraspinal muscles normal Vertebral body tender to palpation over Facet loading test positive TTP Lumbar spine: Motor bulk/ tone/ strength lower extremities , thigh and legs : 5/5 Deep tendon reflexes : Normal Knee Jerk. Normal Ankle Jerk . Vertebral body tenderness to palpation over Rhoades Test positive Lumbar Facet Loading Test positive over BL L4-L5, L5-S1 Straight Leg Raise: positive at 30 degrees right side/ left side Gaenslen's Test positive Sacral spine : Severe tenderness over the Sacroiliac joint: right side / left side Range of motion: Flexion of the lumbar spine <60 degrees Range of motion: Extension of the lumbar spine <20 degrees Gaenslen's Test positive right side / left side Ever test: positive right side / left side Thigh Thrust Test positive right side / left side Sacral Thrust Test positive right side / left side Assessment and plan: Chronic LBP secondary to lumbar DDD, spondylosis with facet arthropathy without myelopathy Will manage residual pain and may RTC on an as needed basis. All questions answered. I have spent less than 30 minutes on patient care today. Dr Duarte was available by phone for the evaluation of this patient. The time was used to review the medical records including relevant urine studies and Prescription history (MAPs), review of the available imaging, evaluation and examination of the patient, coordination of care with the medical staff and if applicable referring physicians, as well as creation of the medical record PQRS Narrative: Smoking Status Never smoker Hx Alcohol Use (MH) No Home Medications: Ambulatory Orders Krill Oil 500 mg PO DAILY 06/18/18 Thyroid, Pork [[place] Thyroid] 30 mg PO SUTUTHSA 06/18/18 Thyroid,Pork [[place] Thyroid] 120 mg PO DAILY 06/18/18 Vitamin B Complex 1 cap PO DAILY 06/18/18 Cholecalciferol [Vitamin D3 (25 Mcg = 1000 Iu)] 50 mcg PO HS 02/25/23 DULoxetine HCL [Cymbalta] 30 mg PO HS 02/25/23 Magnesium 250 mg PO HS 02/25/23 Thyroid, Pork [[place] Thyroid] 60 mg PO MOWEFR 02/25/23 cloNIDine HCL [Catapres] 0.1 mg PO HS 02/25/23 Ibuprofen [Advil] 200 - 400 mg PO Q6HR PRN 04/28/23 Omeprazole [PriLOSEC] 20 mg PO DAILY 04/28/23 Pregabalin [Lyrica] 150 mg PO BID 05/19/23 traMADol HCl [Ultram] 50 mg PO Q12HR PRN 30 Days #60 tab 07/05/23 Controlled Substance Measures - Controlled Substance Measures Is patient prescribed a controlled substance at discharge?: No
[2023-08-30 12:36] VITALS: BP 165/89; PULSE 84; RESP 15; TEMP 97.2
== END ==
LOC: PNWHC3 12:16
PROVIDERS: ATTEND Specialist
DX: M47.817 Spondylosis without myelopathy or radiculopathy, lumbosacral region (principal); M51.37 Other intervertebral disc degeneration, lumbosacral region; Z88.0 Allergy status to penicillin; Z88.1 Allergy status to other antibiotic agents; Z88.2 Allergy status to sulfonamides
CPT/HCPCS: 99211

== ENCOUNTER → 2023-10-25 | Outpatient (CLI) | payer MEDICARE, BC ==
[2023-10-25 11:37] VITALS: BP 132/88; PULSE 85; RESP 16
--- NOTE | 2023-10-25 14:23 | P.PAINPG ---
PQRS Measure Charge Sheet Comment: A 67 yr old female with a history of severe and chronic LBP secondary to lumbar DDD and spondylosis with facet arthropathy without myelopathy presents today for evaluation. Pain level is provoked at 7 /10 in intensity, constant, predominantly axial, localized in the L lower lumbar spine, burning in character w occasional shooting towards the LLE. Pain is provoked by heat, standing/ walking for periods of 15 min or more. Pain is alleviated with injections, chiropractic treatments semi monthly for last 2 yrs w last visit in Jul 2023, medications, topical, ice, repositioning and rest. Oswestry axial pain score of 20. Interventional pain procedures completed include GRIS L4-L5 x1, BL RFA L3-L5 (Jul 2023) Patient is currently on Tramadol Patient denies any side effects of the medication(s), denies excessive drowsiness or sleepiness, denies suicidal ideation and reports that the current pain medication is helping to control the pain and improve activities of daily living. Patient denies any motor or sensory deficits. Patient denies any fever or night sweats, denies any change in the bowel movements or urination. Physical Examination: -Constitutional: Cooperative. Not in acute distress . - Neurologic: Cranial nerve II to XII intact. No focal neurological deficits. - Psychatric: Alert & oriented x 3. Matching mood & appropriate affect. Judgment and insight intact. - Musculoskeletal: Cervical spine: Muscle bulk/ tone/ strength in the bilateral upper extremities normal Vertebral body tenderness to palpation over Spurling test positive Distraction test positive Facet loading test positive TTP Thoracic spine Muscle bulk / tone/ strength in the bilateral paraspinal muscles normal Vertebral body tender to palpation over Facet loading test positive TTP Lumbar spine: Motor bulk/ tone/ strength lower extremities , thigh and legs : 5/5 Deep tendon reflexes : Normal Knee Jerk. Normal Ankle Jerk . Vertebral body tenderness to palpation over Rhoades Test positive over L L4-L5 Lumbar Facet Loading Test positive Straight Leg Raise: positive at 30 degrees right side/ left side Gaenslen's Test positive Sacral spine : Severe tenderness over the Sacroiliac joint: right side / left side Range of motion: Flexion of the lumbar spine <60 degrees Range of motion: Extension of the lumbar spine <20 degrees Gaenslen's Test positive right side / left side Ever test: positive right side / left side Thigh Thrust Test positive right side / left side Sacral Thrust Test positive right side / left side Assessment and plan: Chronic LBP secondary to lumbar DDD, spondylosis with facet arthropathy without myelopathy Recommendation of L TFESI L4-L5 #1 and medication management. May need a series of injections for optimal pain relief. Risks, benefits of procedure discussed and pt verbalized understanding. Protocol for discontinuation/ continuation of medications silvia procedure discussed. Tramadol 50mg #60 w 1 RF. Use, side effects, adverse reactions and safe storage discussed. UDS collected 10/25/23. Pt acknowledged understanding. All questions answered. I have spent less than 30 minutes on patient care today. Dr Duarte was available by phone for the evaluation of this patient. The time was used to review the medical records including relevant urine studies and Prescription history (MAPs), review of the available imaging, evaluation and examination of the patient, coordination of care with the medical staff and if applicable refer ring physicians, as well as creation of the medical record PQRS Narrative: Smoking Status Never smoker Hx Alcohol Use (MH) No Home Medications: Ambulatory Orders Krill Oil 500 mg PO DAILY 06/18/18 Thyroid, Pork [[place] Thyroid] 30 mg PO SUTUTHSA 06/18/18 Thyroid,Pork [[place] Thyroid] 120 mg PO DAILY 06/18/18 Vitamin B Complex 1 cap PO DAILY 06/18/18 Cholecalciferol [Vitamin D3 (25 Mcg = 1000 Iu)] 50 mcg PO HS 02/25/23 DULoxetine HCL [Cymbalta] 30 mg PO HS 02/25/23 Magnesium 250 mg PO HS 02/25/23 Thyroid, Pork [[place] Thyroid] 60 mg PO MOWEFR 02/25/23 cloNIDine HCL [Catapres] 0.1 mg PO HS 02/25/23 Ibuprofen [Advil] 200 - 400 mg PO Q6HR PRN 04/28/23 Omeprazole [PriLOSEC] 20 mg PO DAILY 04/28/23 Pregabalin [Lyrica] 150 mg PO BID 05/19/23 traMADol HCl [Ultram] 50 mg PO Q12HR PRN 30 Days #60 tab 10/25/23 Controlled Substance Measures - Controlled Substance Measures Is patient prescribed a controlled substance at discharge?: Yes When asked, does pt state using other controlled substances?: No If prescribed controlled substance>3 days was MAPS reviewed?: Yes
== END ==
LOC: PNWHC3 10:23
PROVIDERS: ATTEND Specialist
DX: M51.36 Other intervertebral disc degeneration, lumbar region (principal); M47.816 Spondylosis without myelopathy or radiculopathy, lumbar region; G89.29 Other chronic pain; Z88.0 Allergy status to penicillin; Z88.2 Allergy status to sulfonamides; Z88.8 Allergy status to other drugs, medicaments and biological substances
CPT/HCPCS: 80307; G0463; 99212

== ENCOUNTER 2023-11-09 12:04 | Day surgery (SDC) | payer MEDICARE, BC ==
[~2023-11-09 12:04] MED LIST changes: -LIDOCAINE 1% (10MG/ML) FOR IV START INTRADERMA PRN
[2023-11-09 12:41] VITALS: TEMP 97.7
[2023-11-09] MEDS ORDERED: methylPREDNISolone ACETATE 80 MG/ML 1 ML VIAL ONE (12:55)
[2023-11-09] MEDS ORDERED: IOPAMIDOL M200 10 ML VIAL ONE (12:55)
--- NOTE | 2023-11-09 13:02 | P.PCN ---
Date of Procedure: 11/09/23 Procedure(s) Performed: PREOPERATIVE DIAGNOSIS: 1-Lumbar radiculopathy . 2-lumbar degenerative disc disease. 3-lumbar spondylosis with lumbar facet arthropathy without myelopathy POSTOPERATIVE DIAGNOSIS: 1-lumbar radiculopathy. 2-lumbar degenerative disc disease. 3-lumbar spondylosis with facet arthropathy without myelopathy PROCEDURE 1. Transforaminal epidural steroid injection under fluoroscopic guidance at left L4-5 level. (Fluoroscopy images stored on file in the radiology Department ) 2. Lumbar epidurogram . ANESTHESIA: Local with 1% lidocaine 3 ml. EBL: Minimal PROCEDURE INDICATION: The patient with low back pain and radiculopathy symptoms unresponsive to conservative treatment. PROCEDURE DESCRIPTION / TECHNIQUE: The patient was seen and identified in the preoperative area. Risks, benefits, complications, and alternatives were discussed with the patient. The patient agreed to proceed with the procedure and signed the consent, and vital signs were stable. Patient was taken to the OR and time out was completed. The patient was placed in the prone position on procedure table and a pillow was placed under the abdomen to reduce lumbar lordosis. The lumbosacral area was prepped and draped in the usual sterile fashion. Critical pause was taken. Vital signs were closely monitored during the procedure. Using oblique fluoroscopy, the chin of the ``Giovani dog at left L4-5 level was identified, and the skin and deeper tissues just below was localized with 1% lidocaine. Subsequently, a 22-gauge 5-inch spinal needle was advanced under a tunneled view fluoroscopic guidance just underneath the chin of the `Evany dog at the left L4-5 Under lateral fluoroscopy, the needle was then advanced to the posterior border of the interforaminal space. After negative aspiration of CSF and blood and with no paresthesias, 1 mL Isovue 200 contrast dye was injected excellent epidurogram and outlining of the nerve root Subsequently, 3 mL of block solution containing 60 mg Depo-Medrol, and 2 mL of 0.9% normal saline PF was injected. Needle was removed . At the end of the procedure, skin was cleansed, and bandages were applied. COMPLICATIONS:none DISPOSITION / PLANS: The patient was placed in a supine position and transferred to the recovery area in a stable condition for observation. There was no evidence of lower extremity motor or sensory deficit after the procedure. Patient was discharged from the recovery room after meeting discharge criteria. Home discharge instructions were given to the patient by the staff. The patient was reexamined prior to discharge.
[2023-11-09 13:09] VITALS: RESP 16
--- NOTE | 2023-11-09 13:16 | FL ---
Fluoroscopy History: TRANSFORAMINAL EPI 10 SEC FLUORO, .[id number] mGym2
[2023-11-09 13:37] VITALS: BP 190/82; PULSE 75
== END 2023-11-09 13:31 | disposition home or self-care (01) ==
LOC: ORPAIN 12:04
PROVIDERS: ATTEND Specialist
DX: M51.16 Intervertebral disc disorders with radiculopathy, lumbar region (principal); M47.26 Other spondylosis with radiculopathy, lumbar region; Z88.1 Allergy status to other antibiotic agents; Z88.0 Allergy status to penicillin; Z88.2 Allergy status to sulfonamides; Z79.899 Other long term (current) drug therapy
CPT/HCPCS: 64483; J1040; Q9966

== ENCOUNTER → 2023-12-20 | Outpatient (CLI) | payer MEDICARE, BC ==
[2023-12-20 11:46] VITALS: BP 135/72; PULSE 89; RESP 15; TEMP 98.6
--- NOTE | 2023-12-20 14:21 | P.PAINPG ---
Objective - Vital Signs Vital signs: Intake & Output 12/19/23 12/20/23 12/20/23 18:59 06:59 18:59 Weight 100.698 kg PQRS Measure Charge Sheet Comment: A 68 yr old female with a history of severe and chronic LBP secondary to lumbar DDD and spondylosis with facet arthropathy without myelopathy presents today for evaluation s/p L TFESI L4-L5 #1. Pt states she experienced 50% pain relief x 6 wks s/p procedure. Pain level is provoked at 5 /10 in intensity, constant, predominantly axial, localized in the L lower lumbar spine, burning in character w occasional shooting towards the LLE. Pain is provoked by heat, standing/ walking for periods of 15 min or more. Pain is alleviated with injections, chiropractic treatments semi monthly for last 2 yrs w last visit in Jul 2023, medications, topical, ice, repositioning and rest. Oswestry axial pain score of 20. Interventional pain procedures completed include GRIS L4-L5 x1, BL RFA L3-L5 (Jul 2023), L TFESI L4-L5 x1 Patient is currently on Tramadol Patient denies any side effects of the medication(s), denies excessive drowsiness or sleepiness, denies suicidal ideation and reports that the current pain medication is helping to control the pain and improve activities of daily living. Patient denies any motor or sensory deficits. Patient denies any fever or night sweats, denies any change in the bowel movements or urination. Physical Examination: -Constitutional: Cooperative. Not in acute distress . - Neurologic: Cranial nerve II to XII intact. No focal neurological deficits. - Psychatric: Alert & oriented x 3. Matching mood & appropriate affect. Judgment and insight intact. - Musculoskeletal: Cervical spine: Muscle bulk/ tone/ strength in the bilateral upper extremities normal Vertebral body tenderness to palpation over Spurling test positive Distraction test positive Facet loading test positive TTP Thoracic spine Muscle bulk / tone/ strength in the bilateral paraspinal muscles normal Vertebral body tender to palpation over Facet loading test positive TTP Lumbar spine: Motor bulk/ tone/ strength lower extremities , thigh and legs : 5/5 Deep tendon reflexes : Normal Knee Jerk. Normal Ankle Jerk . Vertebral body tenderness to palpation over Rhoades Test positive over L L4-L5 Lumbar Facet Loading Test positive Straight Leg Raise: positive at 30 degrees right side/ left side Gaenslen's Test positive Sacral spine : Severe tenderness over the Sacroiliac joint: right side / left side Range of motion: Flexion of the lumbar spine <60 degrees Range of motion: Extension of the lumbar spine <20 degrees Gaenslen's Test positive right side / left side Ever test: positive right side / left side Thigh Thrust Test positive right side / left side Sacral Thrust Test positive right side / left side Assessment and plan: Chronic LBP secondary to lumbar DDD, spondylosis with facet arthropathy without myelopathy Recommendation of medication management. Will recheck UDS. UDS fr 10/25/23 presumptive positive for ETOH metabolites, Tramadol metabolites. Tramadol 50mg #60 w 1 RF. Use, side effects, adverse reactions and safe storage discussed. Pt acknowledged understanding. All questions answered. I have spent less than 30 minutes on patient care today. Dr Duarte was available by phone for the evaluation of this patient. The time was used to review the medical records including relevant urine studies and Prescription history (MAPs), review of the available imaging, evaluation and examination of the patient, coordination of care with the medical staff and if applicable referring physicians, as well as creation of the medical record - Pain Location Lower Back Non-Pharmacological Interventions: Heat, Ice, Inactivity, Position/Reposition Pharmacological Interventions: Epidural, Scheduled Medication PQRS Narrative: Smoking Status Never smoker Hx Alcohol Use (MH) No Home Medications: Ambulatory Orders Krill Oil 500 mg PO DAILY 06/18/18 Thyroid, Pork [[place] Thyroid] 30 mg PO SUTUTHSA 06/18/18 Thyroid,Pork [[place] Thyroid] 120 mg PO QAM 06/18/18 Vitamin B Complex 1 cap PO DAILY 06/18/18 Cholecalciferol [Vitamin D3 (25 Mcg = 1000 Iu)] 50 mcg PO HS 02/25/23 DULoxetine HCL [Cymbalta] 30 mg PO HS 02/25/23 Magnesium 250 mg PO HS 02/25/23 Thyroid, Pork [[place] Thyroid] 60 mg PO MOWEFR 02/25/23 cloNIDine HCL [Catapres] 0.1 mg PO HS 02/25/23 Ibuprofen [Advil] 200 - 400 mg PO Q6HR PRN 04/28/23 Omeprazole [PriLOSEC] 20 mg PO DAILY 04/28/23 bisacodyL [Dulcolax] 5 mg PO DAILY 11/03/23 traMADol HCl [Ultram] 50 mg PO Q12HR PRN 30 Days #60 tab 12/20/23 Controlled Substance Measures - Controlled Substance Measures Is patient prescribed a controlled substance at discharge?: No
== END ==
LOC: PNWHC3 10:54
PROVIDERS: ATTEND Specialist
DX: M51.36 Other intervertebral disc degeneration, lumbar region (principal); M47.816 Spondylosis without myelopathy or radiculopathy, lumbar region; Z88.0 Allergy status to penicillin; Z88.1 Allergy status to other antibiotic agents; Z88.2 Allergy status to sulfonamides
CPT/HCPCS: 99211

== ENCOUNTER → 2024-02-07 | Outpatient (CLI) | payer MEDICARE, BC ==
[2024-02-07 13:06] VITALS: BP 147/82; PULSE 76; RESP 15; TEMP 98.5
--- NOTE | 2024-02-07 14:11 | P.PAINPG ---
PQRS Measure Charge Sheet Comment: A 68 yr old female with a history of severe and chronic LBP secondary to lumbar DDD and spondylosis with facet arthropathy without myelopathy presents today for medication refills. Pt underwent a L TFESI L4-L5 in Oct 2023 where she experienced 85% pain relief x 2 mo s/p procedure. Pain level is provoked at 6 /10 in intensity, intermittent, predominantly axial, localized in the L lower lumbar spine, burning in character w occasional shooting towards the LLE. Pain is provoked by heat, standing/ walking for periods of 15 min or more. Pain is alleviated with injections, chiropractic treatments semi monthly for last 2 yrs w last visit in Jul 2023, medications, topical, ice, repositioning and rest. Oswestry axial pain score of 21. Interventional pain procedures completed include GRIS L4-L5 x1, BL RFA L3-L5 (Jul 2023), L TFESI L4-L5 x1 Patient is currently on Tramadol Patient denies any side effects of the medication(s), denies excessive drowsiness or sleepiness, denies suicidal ideation and reports that the current pain medication is helping to control the pain and improve activities of daily living. Patient denies any motor or sensory deficits. Patient denies any fever or night sweats, denies any change in the bowel movements or urination. Physical Examination: -Constitutional: Cooperative. Not in acute distress . - Neurologic: Cranial nerve II to XII intact. No focal neurological deficits. - Psychatric: Alert & oriented x 3. Matching mood & appropriate affect. Judgment and insight intact. - Musculoskeletal: Cervical spine: Muscle bulk/ tone/ strength in the bilateral upper extremities normal Vertebral body tenderness to palpation over Spurling test positive Distraction test positive Facet loading test positive TTP Thoracic spine Muscle bulk / tone/ strength in the bilateral paraspinal muscles normal Vertebral body tender to palpation over Facet loading test positive TTP Lumbar spine: Motor bulk/ tone/ strength lower extremities , thigh and legs : 5/5 Deep tendon reflexes : Normal Knee Jerk. Normal Ankle Jerk . Vertebral body tenderness to palpation over Rhoades Test positive over L L4-L5 Lumbar Facet Loading Test positive Straight Leg Raise: positive at 30 degrees right side/ left side Gaenslen's Test positive Sacral spine : Severe tenderness over the Sacroiliac joint: right side / left side Range of motion: Flexion of the lumbar spine <60 degrees Range of motion: Extension of the lumbar spine <20 degrees Gaenslen's Test positive right side / left side Ever test: positive right side / left side Thigh Thrust Test positive right side / left side Sacral Thrust Test positive right side / left side Assessment and plan: Chronic LBP secondary to lumbar DDD, spondylosis with facet arthropathy without myelopathy Recommendation of L TFESI L4-L5 #1. May need a series of injections for optimal pain relief. Risks, benefits of procedure discussed and pt verbalized understanding. Protocol for discontinuation/ continuation of medications silvia procedure discussed. Recommendation of medication management. Rechecking UDS 02/07/24 as UDS fr 10/25/23 presumptive positive for ETOH metabolites, Tramadol metabolites. Tramadol 50mg #60 w 1 RF. Use, side effects, adverse reactions and safe storage discussed. Pt acknowledged understanding. All questions answered. I have spent less than 30 minutes on patient care today. Dr Duarte was available by phone for the evaluation of this patient. The time was used to review the medical records including relevant urine studies and Prescription history (MAPs), review of the available imaging, evaluation and examination of the patient, coordination of care with the medical staff and if applicable referring physicians, as well as creation of the medical record PQRS Narrative: Smoking Status Never smoker Hx Alcohol Use (MH) No Home Medications: Ambulatory Orders Krill Oil 500 mg PO DAILY 06/18/18 Thyroid, Pork [[place] Thyroid] 30 mg PO SUTUTHSA 06/18/18 Thyroid,Pork [[place] Thyroid] 120 mg PO QAM 06/18/18 Vitamin B Complex 1 cap PO DAILY 06/18/18 Cholecalciferol [Vitamin D3 (25 Mcg = 1000 Iu)] 50 mcg PO HS 02/25/23 DULoxetine HCL [Cymbalta] 30 mg PO HS 02/25/23 Magnesium 250 mg PO HS 02/25/23 Thyroid, Pork [[place] Thyroid] 60 mg PO MOWEFR 02/25/23 cloNIDine HCL [Catapres] 0.1 mg PO HS 02/25/23 Ibuprofen [Advil] 200 - 400 mg PO Q6HR PRN 04/28/23 Omeprazole [PriLOSEC] 20 mg PO DAILY 04/28/23 bisacodyL [Dulcolax] 5 mg PO DAILY 11/03/23 traMADol HCl [Ultram] 50 mg PO Q12HR PRN 30 Days #60 tab 04/29/24 Controlled Substance Measures - Controlled Substance Measures Is patient prescribed a controlled substance at discharge?: Yes When asked, does pt state using other controlled substances?: No If prescribed controlled substance>3 days was MAPS reviewed?: Yes
== END ==
LOC: PNWHC3 11:59
PROVIDERS: ATTEND Specialist
DX: M51.36 Other intervertebral disc degeneration, lumbar region (principal); M47.816 Spondylosis without myelopathy or radiculopathy, lumbar region; G89.29 Other chronic pain; Z88.0 Allergy status to penicillin; Z88.8 Allergy status to other drugs, medicaments and biological substances; Z88.2 Allergy status to sulfonamides
CPT/HCPCS: 80307; G0463; 99211

== ENCOUNTER 2024-02-15 08:41 | Day surgery (SDC) | payer MEDICARE, BC ==
[2024-02-10 15:59] VITALS: BMI 37.6
[2024-02-15] MEDS ORDERED: DEXAMETHASONE SOD PHOSPHATE 10 MG/ML 1 ML VIAL ONE (09:43)
[2024-02-15] MEDS ORDERED: IOPAMIDOL M200 10 ML VIAL ONE (09:43)
[2024-02-15 09:50] VITALS: RESP 16; TEMP 98.1
--- NOTE | 2024-02-15 09:57 | P.PCN ---
Date of Procedure: 02/15/24 Surgeon: Brenda Frazier Pathology: none sent Condition: stable Disposition: PACU Description of Procedure: PREOPERATIVE DIAGNOSIS: Lumbar radiculopathy POSTOPERATIVE DIAGNOSIS: Lumbar radiculopathy PROCEDURE 1. Transforaminal epidural steroid injection under fluoroscopic guidance at the L4 5 level on the left side 2. Lumbar epidurogram. SURGEON: Brenda Frazier MD ANESTHESIA: Local only with 1% lidocaine EBL: Minimal PROCEDURE DESCRIPTION / TECHNIQUE: The patient was seen and identified in the preoperative area. Risks, benefits, complications, and alternatives were discussed with the patient. The patient agreed to proceed with the procedure and signed the consent. IV was started, and vital signs were stable. Patient was taken to the OR and time out was completed. The patient was placed in the prone position on procedure table and a pillow was placed under the abdomen to reduce lumbar lordosis. The lumbosacral area was prepped and draped in the usual sterile fashion. Critical pause was taken. Vital signs were closely monitored during the procedure. Conscious sedation was used during the procedure to decrease patients anxiety. The vertebral body of the lumbar vertebra L4 was squared off by tilting the C-arm cephalad then the C-arm was tilted to the oblique position and the target point was at the 6 o'clock position of the pedicle of then skin and deeper tissues were localized with 1% lidocaine. Subsequently, a 22-gauge 5- inch spinal needle was advanced under a tunneled view fluoroscopic guidance just underneath the chin of the Giovani dog at the . Under lateral fluoroscopy, the needle was then advanced to the middle of the upper one third of the foramen between( L4,L5). After negative aspiration of CSF and blood and with no paresthesias, 1 mL of omnipaque contrast dye was injected excellent epidurogram and outlining of the L4 nerve root was identified. Subsequently, 2 mL of block solution containing 10 mg of Decadron and 1 mL of Lidocaine 1% PF was injected. Needle was removed intact . At the end of the procedure, skin was cleansed, and bandages were applied. COMPLICATIONS: None DISPOSITION / PLANS: The patient was placed in a supine position and transferred to the recovery area in a stable condition for observation. There was no evidence of lower extremity motor or sensory deficit after the procedure. Patient was discharged from the recovery room after meeting discharge criteria. Home discharge instructions were given to the patient by the staff.
[2024-02-15 10:37] VITALS: BP 187/85; PULSE 76
--- NOTE | 2024-02-15 11:47 | FL ---
EXAMINATION TYPE: FL guided pain mgmt statistic DATE OF EXAM: 02/15/2024 HISTORY: Fluoroscopy time Total dose area product (DAP) in uGy*m?, mGy*cm? (or similar): 0.52326 IMPRESSION: 1. Fluoroscopy time.
== END 2024-02-15 10:19 | disposition home or self-care (01) ==
LOC: ORPAIN 08:41
PROVIDERS: ATTEND Anesthesiology
DX: M54.16 Radiculopathy, lumbar region (principal); Z88.2 Allergy status to sulfonamides; Z88.8 Allergy status to other drugs, medicaments and biological substances
CPT/HCPCS: 64483; J1100; Q9966

== ENCOUNTER → 2024-04-03 | Outpatient (CLI) | payer MEDICARE, BC ==
[2024-04-03 12:40] VITALS: BP 121/79; PULSE 85; RESP 16
--- NOTE | 2024-04-03 15:02 | P.PAINPG ---
Objective - Vital Signs Vital signs: Intake & Output 04/02/24 04/03/24 04/03/24 18:59 06:59 18:59 Weight 89.358 kg PQRS Measure Charge Sheet Comment: A 68 yr old female with a history of severe and chronic LBP secondary to lumbar DDD and spondylosis with facet arthropathy without myelopathy presents today for medication refills and evaluation s/p L TFESI L4-L5 #1. Pt states she experienced 85% pain relief x 7 wks s/p procedure. Pain level is provoked at 6 /10 in intensity, intermittent, predominantly axial, localized in the L lower lumbar spine, burning in character w occasional shooting towards the LLE. Pain is provoked by heat, standing/ walking for periods of 15 min or more. Pain is alleviated with injections, chiropractic treatments semi monthly for last 2 yrs w last visit in Jul 2023, medications, topical, ice, repositioning and rest. Oswestry axial pain score of 21. Interventional pain procedures completed include GRIS L4-L5 x1, BL RFA L3-L5 (Jul 2023), L TFESI L4-L5 x1 Patient is currently on Tramadol #60 Patient denies any side effects of the medication(s), denies excessive drowsiness or sleepiness, denies suicidal ideation and reports that the current pain medication is helping to control the pain and improve activities of daily living. Patient denies any motor or sensory deficits. Patient denies any fever or night sweats, denies any change in the bowel movements or urination. Physical Examination: -Constitutional: Cooperative. Not in acute distress . - Neurologic: Cranial nerve II to XII intact. No focal neurological deficits. - Psychatric: Alert & oriented x 3. Matching mood & appropriate affect. Judgment and insight intact. - Musculoskeletal: Cervical spine: Muscle bulk/ tone/ strength in the bilateral upper extremities normal Vertebral body tenderness to palpation over Spurling test positive Distraction test positive Facet loading test positive TTP Thoracic spine Muscle bulk / tone/ strength in the bilateral paraspinal muscles normal Vertebral body tender to palpation over Facet loading test positive TTP Lumbar spine: Motor bulk/ tone/ strength lower extremities , thigh and legs : 5/5 Deep tendon reflexes : Normal Knee Jerk. Normal Ankle Jerk . Vertebral body tenderness to palpation over Rhoades Test positive over L L4-L5 Lumbar Facet Loading Test positive Straight Leg Raise: positive at 30 degrees right side/ left side Gaenslen's Test positive Sacral spine : Severe tenderness over the Sacroiliac joint: right side / left side Range of motion: Flexion of the lumbar spine <60 degrees Range of motion: Extension of the lumbar spine <20 degrees Gaenslen's Test positive right side / left side Ever test: positive right side / left side Thigh Thrust Test positive right side / left side Sacral Thrust Test positive right side / left side Assessment and plan: Chronic LBP secondary to lumbar DDD, spondylosis with facet arthropathy without myelopathy Recommendation of . May need a series of injections for optimal pain relief. Risks, benefits of procedure discussed and pt verbalized understanding. Protocol for discontinuation/ continuation of medications silvia procedure discussed. Recommendation of medication management. UDS 02/07/24 recheck +Tramadol. Tramadol 50mg #60 w 2 RF. Use, side effects, adverse reactions and safe storage discussed. Pt acknowledged understanding. All questions answered. I have spent less than 30 minutes on patient care today. Dr Duarte was available by phone for the evaluation of this patient. The time was used to review the medical records including relevant urine studies and Prescription history (MAPs), review of the available imaging, evaluation and examination of the patient, coordination of care with the medical staff and if applicable referring physicians, as well as creation of the medical record - Pain Location Bilateral Lower Back Non-Pharmacological Interventions: Chiropractic Treatment, Heat, Inactivity Pharmacological Interventions: Block, Epidural, PRN Medication, Topical Medication PQRS Narrative: Smoking Status Never smoker Hx Alcohol Use (MH) No Home Medications: Ambulatory Orders Krill Oil 500 mg PO DAILY 06/18/18 Thyroid, Pork [[place] Thyroid] 30 mg PO SUTUTHSA 06/18/18 Thyroid,Pork [[place] Thyroid] 120 mg PO QAM 06/18/18 Vitamin B Complex 1 cap PO DAILY 06/18/18 Cholecalciferol [Vitamin D3 (25 Mcg = 1000 Iu)] 50 mcg PO HS 02/25/23 DULoxetine HCL [Cymbalta] 30 mg PO HS 02/25/23 Magnesium 250 mg PO HS 02/25/23 Thyroid, Pork [[place] Thyroid] 60 mg PO MOWEFR 02/25/23 cloNIDine HCL [Catapres] 0.1 mg PO HS 02/25/23 Ibuprofen [Advil] 200 - 400 mg PO Q6HR PRN 04/28/23 Omeprazole [PriLOSEC] 20 mg PO DAILY 04/28/23 bisacodyL [Dulcolax] 5 mg PO DAILY 11/03/23 amLODIPine [Norvasc] 10 mg PO DAILY 02/10/24 lisinopriL [Zestril] 20 mg PO DAILY 02/10/24 traMADol HCl [Ultram] 50 mg PO Q12HR PRN 30 Days #60 tab 04/03/24 Controlled Substance Measures - Controlled Substance Measures Is patient prescribed a controlled substance at discharge?: Yes When asked, does pt state using other controlled substances?: No If prescribed controlled substance>3 days was MAPS reviewed?: Yes
== END ==
LOC: PNWHC3 12:19
PROVIDERS: ATTEND Specialist
DX: M51.36 Other intervertebral disc degeneration, lumbar region (principal); M47.816 Spondylosis without myelopathy or radiculopathy, lumbar region; Z88.0 Allergy status to penicillin; Z88.2 Allergy status to sulfonamides
CPT/HCPCS: 99211

== ENCOUNTER → 2024-06-26 | Outpatient (CLI) | payer MEDICARE, BC ==
[2024-06-26 12:37] VITALS: BP 170/82; PULSE 77; RESP 16; TEMP 97.8
--- NOTE | 2024-06-26 15:12 | P.PAINPG ---
Objective - Vital Signs Vital signs: Vital Signs Temp 97.8 F 06/26/24 12:34 Pulse 77 06/26/24 12:34 Resp 16 06/26/24 12:34 BP 170/82 06/26/24 12:34 Pulse Ox 98 06/26/24 12:34 FiO2 Intake & Output 06/25/24 06/26/24 06/26/24 18:59 06:59 18:59 Weight 89.811 kg PQRS Measure Charge Sheet Mode of Arrival: Ambulatory Comment: A 68 yr old female with a history of severe and chronic LBP secondary to lumbar DDD and spondylosis with facet arthropathy without myelopathy presents today for medication refills. Pain level is provoked at 6 /10 in intensity, intermittent, predominantly axial, localized in the L lower lumbar spine, burning in character w occasional shooting towards the L hip and L knee. Pain is provoked by heat, standing/ walking for periods of 15 min or more. Pain is alleviated with injections, chiropractic treatments semi monthly for last 2 yrs w last visit in Jul 2023, medications, topical, ice, repositioning and rest. Interventional pain procedures completed include GRIS L4-L5 x1, BL RFA L3-L5 (Jul 2023), L TFESI L4-L5 x1 (Mar 2024) Patient is currently on Tramadol #60 Patient denies any side effects of the medication(s), denies excessive drowsiness or sleepiness, denies suicidal ideation and reports that the current pain medication is helping to control the pain and improve activities of daily living. Patient denies any motor or sensory deficits. Patient denies any fever or night sweats, denies any change in the bowel movements or urination. Physical Examination: -Constitutional: Cooperative. Not in acute distress . - Neurologic: Cranial nerve II to XII intact. No focal neurological deficits. - Psychatric: Alert & oriented x 3. Matching mood & appropriate affect. Judgment and insight intact. - Musculoskeletal: Cervical spine: Muscle bulk/ tone/ strength in the bilateral upper extremities normal Vertebral body tenderness to palpation over Spurling test positive Distraction test positive Facet loading test positive TTP Thoracic spine Muscle bulk / tone/ strength in the bilateral paraspinal muscles normal Vertebral body tender to palpation over Facet loading test positive TTP Lumbar spine: Motor bulk/ tone/ strength lower extremities , thigh and legs : 5/5 Deep tendon reflexes : Normal Knee Jerk. Normal Ankle Jerk . Vertebral body tenderness to palpation over Rhoades Test positive over L L4-L5 Lumbar Facet Loading Test positive Straight Leg Raise: positive at 30 degrees right side/ left side Gaenslen's Test positive Sacral spine : Severe tenderness over the Sacroiliac joint: right side / left side Range of motion: Flexion of the lumbar spine <60 degrees Range of motion: Extension of the lumbar spine <20 degrees Gaenslen's Test positive right side / left side Ever test: positive right side / left side Thigh Thrust Test positive right side / left side Sacral Thrust Test positive right side / left side Assessment and plan: Chronic LBP secondary to lumbar DDD, spondylosis with facet arthropathy without myelopathy Recommendation of medication management and L TFESI L4-L5 #2. Risks, benefits of procedure discussed and pt verbalized understanding. Protocol for discontinuation/ continuation of medications silvia procedure discussed. UDS 02/07/24 recheck +Tramadol. Tramadol 50mg #60 w 2 RF. Use, side effects, adverse reactions and safe storage discussed. Pt acknowledged understanding. All questio ns answered. I have spent less than 30 minutes on patient care today. Dr Duarte was available by phone for the evaluation of this patient. The time was used to review the medical records including relevant urine studies and Prescription history (MAPs), review of the available imaging, evaluation and examination of the patient, coordination of care with the medical staff and if applicable referring physicians, as well as creation of the medical record PQRS Narrative: Smoking Status Never smoker Blood Pressure 170/82 Scale Used Numeric (1 - 10) Hx Alcohol Use (MH) No Home Medications: Ambulatory Orders Krill Oil 500 mg PO DAILY 06/18/18 Thyroid, Pork [[place] Thyroid] 30 mg PO SUTUTHSA 06/18/18 Thyroid,Pork [[place] Thyroid] 120 mg PO QAM 06/18/18 Vitamin B Complex 1 cap PO DAILY 06/18/18 Cholecalciferol [Vitamin D3 (25 Mcg = 1000 Iu)] 50 mcg PO HS 02/25/23 DULoxetine HCL [Cymbalta] 30 mg PO HS 02/25/23 Magnesium 250 mg PO HS 02/25/23 Thyroid, Pork [[place] Thyroid] 60 mg PO MOWEFR 02/25/23 cloNIDine HCL [Catapres] 0.1 mg PO HS 02/25/23 Ibuprofen [Advil] 200 - 400 mg PO Q6HR PRN 04/28/23 Omeprazole [PriLOSEC] 20 mg PO DAILY 04/28/23 bisacodyL [Dulcolax] 5 mg PO DAILY 11/03/23 amLODIPine [Norvasc] 10 mg PO DAILY 02/10/24 lisinopriL [Zestril] 20 mg PO DAILY 02/10/24 traMADol HCl [Ultram] 50 mg PO Q12HR PRN 30 Days #60 tab 06/26/24 Controlled Substance Measures - Controlled Substance Measures Is patient prescribed a controlled substance at discharge?: Yes When asked, does pt state using other controlled substances?: No If prescribed controlled substance>3 days was MAPS reviewed?: Yes
== END ==
LOC: PNWHC3 12:19
PROVIDERS: ATTEND Specialist
DX: M54.16 Radiculopathy, lumbar region
CPT/HCPCS: 99211

== ENCOUNTER 2024-07-20 12:00 | Day surgery (SDC) | payer MEDICARE, BC ==
[2024-07-17 13:28] VITALS: BMI 36.3
[2024-07-20 12:25] VITALS: RESP 18; TEMP 99
[2024-07-20] MEDS ORDERED: methylPREDNISolone ACETATE 80 MG/ML 1 ML VIAL ONE (13:08)
[2024-07-20] MEDS ORDERED: IOPAMIDOL M200 10 ML VIAL ONE (13:08)
--- NOTE | 2024-07-20 13:15 | P.PCN ---
Date of Procedure: 07/20/24 Procedure(s) Performed: PREOPERATIVE DIAGNOSIS: 1-Lumbar radiculopathy . 2-lumbar degenerative disc disease. 3-lumbar spondylosis with lumbar facet arthropathy without myelopathy POSTOPERATIVE DIAGNOSIS: 1-lumbar radiculopathy. 2-lumbar degenerative disc disease. 3-lumbar spondylosis with facet arthropathy without myelopathy PROCEDURE 1. Transforaminal epidural steroid injection under fluoroscopic guidance at left L4-5 level. (Fluoroscopy images stored on file in the radiology Department ) 2. Lumbar epidurogram . ANESTHESIA: Local with 1% lidocaine 3 ml. EBL: Minimal PROCEDURE INDICATION: The patient with low back pain and radiculopathy symptoms unresponsive to conservative treatment. PROCEDURE DESCRIPTION / TECHNIQUE: The patient was seen and identified in the preoperative area. Risks, benefits, complications, and alternatives were discussed with the patient. The patient agreed to proceed with the procedure and signed the consent, and vital signs were stable. Patient was taken to the OR and time out was completed. The patient was placed in the prone position on procedure table and a pillow was placed under the abdomen to reduce lumbar lordosis. The lumbosacral area was prepped and draped in the usual sterile fashion. Critical pause was taken. Vital signs were closely monitored during the procedure. Using oblique fluoroscopy, the chin of the ``Giovani dog at left L4-5 level was identified, and the skin and deeper tissues just below was localized with 1% lidocaine. Subsequently, a 22-gauge 5-inch spinal needle was advanced under a tunneled view fluoroscopic guidance just underneath the chin of the `Evany dog at the left L4-5 Under lateral fluoroscopy, the needle was then advanced to the posterior border of the interforaminal space. After negative aspiration of CSF and blood and with no paresthesias, 1 mL Isovue 200 contrast dye was injected excellent epidurogram and outlining of the nerve root Subsequently, 3 mL of block solution containing 60 mg Depo-Medrol, and 2 mL of 0.9% normal saline PF was injected. Needle was removed . At the end of the procedure, skin was cleansed, and bandages were applied. COMPLICATIONS:none DISPOSITION / PLANS: The patient was placed in a supine position and transferred to the recovery area in a stable condition for observation. There was no evidence of lower extremity motor or sensory deficit after the procedure. Patient was discharged from the recovery room after meeting discharge criteria. Home discharge instructions were given to the patient by the staff. The patient was reexamined prior to discharge.
[2024-07-20 13:42] VITALS: BP 126/69; PULSE 82
--- NOTE | 2024-07-20 13:48 | FL ---
Fluoroscopy History: PAIN 10 SEC [place] .[id number] DAP dose with [facility], , 07/20/2024 1:46 PM
== END 2024-07-20 13:43 | disposition home or self-care (01) ==
LOC: ORPAIN 12:00
PROVIDERS: ATTEND Specialist
DX: M54.16 Radiculopathy, lumbar region
CPT/HCPCS: 64483

== ENCOUNTER → 2024-09-18 | Outpatient (CLI) | payer MEDICARE, BC ==
[2024-09-18 12:44] VITALS: BP 137/83; PULSE 85; RESP 16
--- NOTE | 2024-09-18 15:22 | P.PAINPG ---
Objective - Vital Signs Vital signs: Intake & Output 09/17/24 09/18/24 09/18/24 18:59 06:59 18:59 Weight 91.172 kg PQRS Measure Charge Sheet Comment: A 68 yr old female with a history of severe and chronic LBP secondary to radiculopathy, spondylosis with facet arthropathy without myelopathy presents today for medication refills and evaluation s/p L TFESI L4-L5 #2. Pt states she experienced 75% pain relief x 5 wks s/p procedure. Pain level is provoked at 8 /10 in intensity, intermittent, predominantly axial, localized in the lower lumbar spine, sharp in character w occasional shooting towards the L hip and L knee. Pain is provoked by heat, standing/ walking for periods of 15 min or more. Pain is alleviated with injections, chiropractic treatments semi monthly for last 2 yrs w last visit in Jul 2023, medications, topical, ice, repositioning and rest. Interventional pain procedures completed include GRIS L4-L5 x1, BL RFA L3-L5 (Jul 2023), L TFESI L4-L5 x1 (Mar 2024) Patient is currently on Tramadol Patient denies any side effects of the medication(s), denies excessive drowsiness or sleepiness, denies suicidal ideation and reports that the current pain medication is helping to control the pain and improve activities of daily living. Patient denies any motor or sensory deficits. Patient denies any fever or night sweats, denies any change in the bowel movements or urination. Physical Examination: -Constitutional: Cooperative. Not in acute distress . - Neurologic: Cranial nerve II to XII intact. No focal neurological deficits. - Psychatric: Alert & oriented x 3. Matching mood & appropriate affect. Judgment and insight intact. - Musculoskeletal: Cervical spine: Muscle bulk/ tone/ strength in the bilateral upper extremities normal Vertebral body tenderness to palpation over Spurling test positive Distraction test positive Facet loading test positive TTP Thoracic spine Muscle bulk / tone/ strength in the bilateral paraspinal muscles normal Vertebral body tender to palpation over Facet loading test positive TTP Lumbar spine: Motor bulk/ tone/ strength lower extremities , thigh and legs : 5/5 Deep tendon reflexes : Normal Knee Jerk. Normal Ankle Jerk . Vertebral body tenderness to palpation over Rhoades Test positive over L L4-L5 Lumbar Facet Loading Test positive Straight Leg Raise: positive at 30 degrees right side/ left side Gaenslen's Test positive Sacral spine : Severe tenderness over the Sacroiliac joint: right side / left side Range of motion: Flexion of the lumbar spine <60 degrees Range of motion: Extension of the lumbar spine <20 degrees Gaenslen's Test positive right side / left side Ever test: positive right side / left side Thigh Thrust Test positive right side / left side Sacral Thrust Test positive right side / left side Assessment and plan: Chronic LBP secondary to radiculopathy, spondylosis with facet arthropathy without myelopathy Recommendation of medication management. UDS from 02/07/24 +Tramadol. Tramadol 50mg #120 w 2 RF. Use, side effects, adverse reactions and safe storage discussed. Pt acknowledged understanding. All questions answered. I have spent less than 30 minutes on patient care today. Dr Duarte was available by phone for the evaluation of this patient. The time was used to review the medical records including relevant urine studies and Prescription history (MAPs), review of the available imaging, evaluation and examination of the patient, coordination of care with the medical staff and if applicable referring physicians, as well as creation of the medical record - Pain Location Lower Back Non-Pharmacological Interventions: Ice Pharmacological Interventions: Epidural, PRN Medication, Scheduled Medication PQRS Narrative: Smoking Status Never smoker Hx Alcohol Use (MH) No Home Medications: Ambulatory Orders Krill Oil 500 mg PO DAILY 06/18/18 Thyroid, Pork [Serafina Thyroid] 30 mg PO SUTUTHSA 06/18/18 Thyroid,Pork [Serafina Thyroid] 120 mg PO QAM 06/18/18 Vitamin B Complex 1 cap PO DAILY 06/18/18 Cholecalciferol [Vitamin D3 (25 Mcg = 1000 Iu)] 50 mcg PO HS 02/25/23 DULoxetine HCL [Cymbalta] 30 mg PO HS 02/25/23 Magnesium 250 mg PO HS 02/25/23 Thyroid, Pork [Serafina Thyroid] 60 mg PO MOWEFR 02/25/23 cloNIDine HCL [Catapres] 0.1 mg PO HS 02/25/23 Omeprazole [PriLOSEC] 20 mg PO DAILY 04/28/23 bisacodyL [Dulcolax] 5 mg PO DAILY 11/03/23 amLODIPine [Norvasc] 10 mg PO DAILY 02/10/24 lisinopriL [Zestril] 20 mg PO DAILY 02/10/24 Pyridoxine HCl (Vitamin B6) [Vitamin B-6] 100 mg PO BID 07/17/24 traMADol HCl [Ultram] 50 mg PO QID PRN 30 Days #120 tab 09/18/24 Controlled Substance Measures - Controlled Substance Measures Is patient prescribed a controlled substance at discharge?: Yes When asked, does pt state using other controlled substances?: No If prescribed controlled substance>3 days was MAPS reviewed?: Yes
== END ==
LOC: PNWHC3 12:26
PROVIDERS: ATTEND Specialist
DX: M47.26 Other spondylosis with radiculopathy, lumbar region (principal); Z88.0 Allergy status to penicillin; Z88.2 Allergy status to sulfonamides
CPT/HCPCS: 99211